=== PATIENT | female | born 1960 | race Caucasian/White ===

== ENCOUNTER → 2016-06-20 | Outpatient (CLI) | payer OTHER ==
[~2016-06-20] MED LIST: ATEN-173 PO; SYN125
[2016-06-20 18:42] LABS: BASO % 0.4 %; BASO ABS # 0.02 K/uL (0-0.2); COMPLETE YES; EOS % 3.6 %; HEMATOCRIT 45.4 % (37-47); IG% 0.2 %; LYMPH % 42.9 %; MEAN CELL VOLUME 93.8 fL (80-100); MEAN CORPUSCULAR HGB CONC 34.1 g/dl (32-36); MEAN PLATELET VOLUME 10.8 fL (7.4-10.4); MONO % 4.5 %; NEUT % 48.4 %; PLATELET COUNT 188 K/uL (130-400); RED BLOOD COUNT 4.84 M/uL (4.2-5.4); WHITE BLOOD COUNT 4.66 K/uL (4.8-10.8)
== END | disposition home or self-care (01) ==
LOC: C.LABSPEC 16:48
PROVIDERS: ATTEND Family Medicine
DX: L29.9 Pruritus, unspecified (principal); R71.8 Other abnormality of red blood cells

== ENCOUNTER → 2016-06-20 | Outpatient (CLI) | payer OTHER | END | disposition home or self-care (01) | LOC: C.PAPS 09:51 | PROVIDERS: ATTEND Family Medicine | DX: Z12.72 Encounter for screening for malignant neoplasm of vagina (principal) ==

== ENCOUNTER → 2016-06-21 | Outpatient (CLI) | payer OTHER ==
[~2016-06-21] VITALS: Ht 167.6 cm; Wt 98.5 kg
[2016-06-21 15:09] VITALS: BP 119/78; PULSE 64; Ht 167.6 cm; Wt 98.5 kg
== END | disposition home or self-care (01) ==
LOC: C.NEUR 13:30
PROVIDERS: ATTEND Physician Assistant Medical
DX: R06.89 Other abnormalities of breathing (principal); R06.83 Snoring

== ENCOUNTER → 2016-08-06 | Outpatient (CLI) | payer OTHER ==
--- NOTE | 2016-08-07 06:25 | PAP/PSG TECHNICIAN REPORT ---
[facility] Digital Marketing Consultant Polysomnogram Report Study name: None Report date: 08/07/2016 Study date: 08/06/2016 Referring Physician: Bianka Multani PA-C Name: JOB GARY Interpreting Physician: Christophe Ruth M.D. Date of : 1960 Digital Marketing Consultant: Krissy Rosas RPSGT. Sex: Female Age: 56 StudyType: PSG Weight: 217.2 lbs Height: 56 years, Height 5' 6" Neck Circum:15inches BMI: 35.05 Medications: Atenolol 25mg, Levothyroxine Sodium 125mcg Patient History Study started on room air with no ETCO2 monitoring in room #60. 56 yr old female here tonight for a diagnostic psg. She states that she has woken up unable to breathe with panic attacks. She does snore. She talks in her sleep. She has two siblings with DANIELA and are both using cpap. Her ESS=6/24. Neck circ=15inches. Parameters Monitored NPSG: E1-M2, E2-M1, Fp1-M2, Fp2-M1, F3-M2, F4-M2, F4-M1, C3-M2, C4-M2, C4-M1, O1-M2, O2-M2, O2-M1, T3-M2, T4-M1, P3-M2, P4-M1, CHIN1, CHIN2, HR, EKG, Legs, PFLOW, SNOR, FLOW, CFLOW, Tidal Volume, THOR, ABDO, SpO2, PLTH, CPRESS, ETCO2 Wave, ETCO2, pH Sleep Architecture Sleep Stages Time at Lights Off 10:00:21 PM STAGES Time (min.) TST (%) Time at Lights On 5:43:21 AM Wake 37.0 -- Total Recording Time (TRT) 463.00 min. N1 30.0 7 Total Sleep Period (TSP) 449.5 min. N2 283.5 67 Total Sleep Time (TST) 426.0min. N3 48.5 11 Awake Time 37.0 min. REM 64.0 15 Wake after Sleep Onset 23.5 min. Sleep Efficiency (SE) 92 % Sleep Onset Latency (CHARISSA) 13.5 min. Number of Stage 1 Shifts None Awakenings 15 Stage Changes 78 Number of REM periods 4 REM 64.0 15 REM Latency 136.5 min. NREM 362.0 85 Body Position Analysis Supine Right Left Side Prone Vertical Total Sleep Time (min.) 62.2 180.3 196.5 376.75 0.0 0.0 Total Sleep Time (%) 12% 42% 46% 88 0% N/A% Total Sleep Time REM (min.) 0.0 19.0 45.0 None 0.0 0.0 Total Sleep Time NREM (min.) 49.2 161.3 151.5 None 0.0 0.0 Intermittent Wake (min.) 13.0 7.3 16.7 None 0.0 0.0 Total Sleep Period (%) 12% None None None None None Arousals Myoclonus (PLM) * Events Count Index Events Count Index Spontaneous 10 1 Events Awake (PLMW) 27 43.8 Respiratory 0 0.0 Events Asleep w/ Arousal (PLMA) 15 2.1 PLM 13 2 Events Asleep w/o Arousal (PLMS) 72 10.1 Snoring 3 0 Total Asleep 87 12.3 Total 26 4 Total 114 15 Respiratory Analysis * CA OA MA CH H RERA Total Count 0 1 0 0 6 0 7 Index 0.0 0.1 0.0 0 0.8 0 1.0 Mean Duration 0.0 13.3 0.0 0.00 33.0 0.0 30.2 Longest Duration 0.0 13.3 0.0 0.00 0.0 0.0 40.6 Respiratory Event Summary Total Supine ~Supine Right Left Prone REM NREM Apneas Count 1 0 1 1 0 N/A 1 0 Index 0.1 0 0 0.3 0.0 N/A 1 0 Hypopneas (4% Desat) Count 6 0 6 6 0 N/A 6 0 Index 0.8 0.0 1 2.0 0.0 N/A 5.6 0.0 Apneas & All Hypopneas Count 7 0 7 7 0 N/A 7 0 Index 1.0 0 1 2 0 N/A 6.6 0.0 Respiratory Events (Conveyor Line Battery Charger+All Hyp+RERA) Count 7 0 7 7 0 N/A 7 0 Index 1.0 0 1 2.3 0.0 N/A 6.6 0.0 Respiratory Related Arousal Count 0 0 0 0 0 N/A 0 0 Index 0.0 0 0 0 0 N/A 0 0 Snoring Analysis Supine Right Left Prone REM NREM Total Snore duration 36.4 min Snores count 293 849 357 N/A 132 1,367 1,499 Snore mean duration 1.5 Sec Snores index 357 283 109 N/A 123.8 226.6 211.1 TST with snoring (%) 8.6% Desaturation Event Summary: Minimum %SpO2 Event Count Mean/Min/Max Duration(sec.) Desaturation Index % Time In Bed > 90 4 38.9 / 18.5 / 60.0 0.5 96.6 86 - 90 0 N/A 0.0 3.4 81 - 85 0 N/A 0.0 0.0 76 - 80 0 N/A 0.0 0.0 71 - 75 0 N/A 0.0 0.0 66 - 70 0 N/A 0.0 0.0 61 - 65 0 N/A 0.0 0.0 56 - 60 0 N/A 0.0 0.0 51 - 55 0 N/A 0.0 0.0 < 50 0 N/A 0.0 0.0 Total REM NREM Awake <50% 0.0 min. 0.0 min. 0.0 min. 0.0 min. 51 - 60% 0.0 min. 0.0 min. 0.0 min. 0.0 min. 61 - 70% 0.0 min. 0.0 min. 0.0 min. 0.0 min. 71 - 80% 0.0 min. 0.0 min. 0.0 min. 0.0 min. 81 - 90% 15.9 min. 3.9 min. 11.4 min. 0.6 min. 91 - 100% 447.1 min. 60.1 min. 350.6 min. 36.4 min. Average 92 92 92 93 Minimum SpO2 87 87 89 90 Desaturation Event Index 0.5 3.8 0.0 0.0 # Desat. Events below 89% 1 1 N/A N/A Time(%) with Saturation below 89% 0.0 0.0 0.0 0.0 Time(min.) with Saturation below 89% 0.2 0.2 0.0 0.0 Time (mins) REM (mins) NREM (mins) % of TST SpO2 Below 90% 2 2 NN/A 0.3 SpO2 Below 88% 0 0 0 0 Heart Rate Analysis Min (bpm) Max (bpm) Average (bpm) Awake 47 82 58 NREM 45 87 52 REM 47 63 54 Overall 45 87 53 Supplemental O2 Values Minimum O2 level: None Value Start Time End Time Digital Marketing Consultant Comments Mrs. Gary slept in the right, left and supine positions. No cardiac arrhythmia noted. Some leg movements were noted. No bruxism noted. Snoring was noted and scored as a 3 on a scale of 1 through 5. (0=no snoring, 5=snoring loud enough to be heard through a closed door or down the oropeza way) She did not use the restroom during the night. She stated that she slept a little worse than usual. The final report will be interpreted and signed by a sleep physician. The completed physician report will then be placed in the patient medical record. Therapy (cm H2O) 0 TIB (min.) 463.0 TST (min.) 426.0 Sleep Onset (min.) 13.5 REM Onset From Sleep (min.) 136.5 Sleep Efficiency % 92 Wakefulness (%) 8 Wakefulness (min.) 37.0 NREM 1 (%) 7 NREM 1 (min.) 30.0 NREM 2 (%) 67 NREM 2 (min.) 283.5 NREM 3 (%) 11 NREM 3 (min.) 48.5 REM (%) 15 REM (min.) 64.0 # Arousals 26 Arousal Index 4 # Snore 1,499 Snore Index 211.1 AHI 1.0 AHI Supine 0 AHI Non-Supine 1 NREM AHI 0.0 REM AHI 6.6 RDI 1.0 # Obstructive Apnea 1 # Central Apnea 0 # Mixed Apnea 0 # Hypopneas 6 RERAs 0 Total Respiratory Events 7 Time Below SpO2 89% (min.) 0.2 Mean NREM SpO2 (%) 92 Mean REM SpO2 (%) 92 Mean Sleep SpO2 (%) 92 Min NREM SpO2 (%) 89 Min REM SpO2 (%) 87 Position Supine (min.) 62.2 Position Non-supine (min.) 376.8 LM Index Sleep 12.3 LM Index NREM 12.9 LM Index REM 8.4 Mean Heart Rate (bpm) 53 Min Heart Rate (bpm) 45
--- NOTE | 2016-08-12 12:46 | Sleep Study ---
Sleep Study Report Date of Service: August 06, 2016 Sleep Study Report Clinical data: The patient is a 56-year-old female with a BMI of 35 referred by for evaluation of possible sleep apnea. She has woken herself at night unable to breathe with panic attacks. She does snore. Her [place] sleepiness score is 6/24. Sleep architecture: Total sleep time was 426 minutes divided between 362 minutes of non-REM sleep and 64 minutes of REM sleep. Sleep onset latency was 13.5 minutes. REM latency was 136.5 minutes. Sleep efficiency was 92%. Wake after sleep onset was 23.5 minutes. Sleep consisted of stage N1 7%, N2 67%, N3 11%, and REM 15%. Arousal data: 26 arousals were recorded for an index of 4 per hour. PLM data 87 limb movements of sleep were noted for an index of 12.3 per hour with arousal index of 2.1 per hour. Respiratory data: There was no evidence of clinically significant sleep apnea. The AHI was 1. There was 1 apneic episode obstructive in nature 13.3 seconds in duration. There were 6 hypopneas episodes. The mean duration of hypopnea was 33 seconds. Oximetry data: No significant hypoxemia was seen. Oxygen elke was 87% during REM. Mean saturation was 92%. Time below 88% was less than 1 minute. EKG: Heart rates ranged from 45 to 87 beats per minute. No arrhythmias were noted. Plywood And Veneer Repairer's comments: Patient slept on the right, left, and supine positions. No bruxism was noted. Snoring was moderate, rated 3 on a scale 1 through 5. Impression: 56-year-old female with snoring, but no evidence of significant sleep apnea/hypopnea, nocturnal hypoxemia, or abnormal limb movements during sleep. Recommendations: The patient should continue to practice good sleep hygiene. There is no evidence for need of CPAP or an oral appliance at this time. She should continue to practice good sleep hygiene. Copies To 1: Maryanne Cary D.O.
== END ==
LOC: C.NEUR 20:00
PROVIDERS: ATTEND Physician Assistant Medical
DX: R06.89 Other abnormalities of breathing (principal); R06.83 Snoring

== ENCOUNTER 2020-09-03 00:15 | Observation (INO) ==
[2020-09-03] MEDS ORDERED: SODIUM CHLORIDE 0.9% 1000ML 1,000 ML IV STA (00:33)
[2020-09-03] MEDS ORDERED: FAMOTIDINE 20MG/5ML IV PUSH IV STA (00:33)
[2020-09-03] MEDS ORDERED: DICYCLOMINE HCL 10 MG/ML 2 ML AMP/VIAL IM ONE (00:33)
--- NOTE | 2020-09-03 00:40 | Emergency Department Note ---
History of Present Illness General Chief complaint: Abdominal Pain Stated complaint: RT SIDE ABD PAIN Time Seen by Provider: 09/03/20 00:24 History of Present Illness Maximum Pain Intensity: 6 This 60-year-old with a gluten allergy presents to the ER complaining of epigastric right upper quadrant pain shortly after eating a bagel Location: Upper abdomen Quality: Discomfort Severity: Moderate Duration: Today Timing: Today Context: Patient was concerned and came in Modifying factors: better with nothing; worse with activity Patient denies chest pain, dyspnea, vomiting, diarrhea, urinary symptoms. She states she feels bloated and gassy. Home Medications Medication Instructions Recorded Confirmed Type calcium carbonate-vitamin D3 600 1 tab PO HS 10/26/17 07/09/20 History mg calcium-200 unit capsule (Calcium 600 + D(3)) coenzyme Q10 200 mg capsule (Co 200 mg PO HS 10/26/17 07/09/20 History Q-10) omega-3 fatty acids-fish oil 360 1 cap PO HS 10/26/17 07/09/20 History mg-1,200 mg capsule (Fish Oil) turmeric root extract 500 mg 500 mg PO HS 10/26/17 07/09/20 History capsule levothyroxine 100 mcg tablet 100 mcg PO DAILY 11/30/19 07/09/20 History (Synthroid) rosuvastatin 20 mg tablet 20 mg PO HS 11/30/19 07/09/20 History Auto Titrating CPAP See Rx Instructions .ROUTE 04/29/20 07/09/20 Rx .COMPLEX #1 ea diclofenac sodium 75 mg 75 mg PO BIDM PRN 04/29/20 07/09/20 History tablet,delayed release diltiazem HCl 30 mg tablet 30 mg PO DAILY tab 04/29/20 07/09/20 History levothyroxine 112 mcg capsule 112 mcg PO UD cap 04/29/20 07/09/20 History CPAP Supplies See Rx Instructions .ROUTE 07/09/20 07/09/20 Rx .COMPLEX #1 ea Allergies Allergy/AdvReac Type Severity Reaction Status Date / Time latex Allergy Intermediate RASH Verified 07/09/20 09:36 gluten Allergy Mild Gastrointestinal Verified 07/09/20 09:36 Upset iodine AdvReac Intermediate hyperthyroi Verified 07/09/20 09:36 d SULFA Allergy Intermediate RASH Uncoded 07/09/20 09:36 Past Med/Surg History Medical History (Updated 09/03/20 @ 04:47 by Kate Wheeler PA-C) Enlarged thyroid H/O HAD RADIOACTIVE IODINE 2006 Gluten intolerance NOT OFFICIALLY DIAGNOSED WITH CELIAC'S DISEASE Hyperlipidemia Hypothyroidism Mitral valve prolapse NO FOOD AND BEVERAGE COORDINATOR--PER PT REASON TAKES ATENOLOL Surgical History H/O cyst of breast R BENIGN History of colonoscopy History of surgery on integumentary structure L FOOT MOLE (BENIGN) REMOVED BETWEEN 4TH/5TH TOE History of tooth extraction WISDOM TEETH S/P correction of deviated nasal septum Family History Father Family history of reaction to anesthesia WAKES UP COMBATIVE Son Family history of reaction to anesthesia WAKES UP COMBATIVE Social History Smoking Status: Former smoker Tobacco Type: Cigarettes Second Hand Exposure: No; Hx Alcohol Use: Yes Alcohol type: wine Hx Substance Use: No Preferred Language: Burundian Communication Ability: Effective Policy Writer Typist Required: No Beliefs That Will Affect Care: Faith Faith Beliefs: MOSQUE Current Living Situation: Spouse and Family Feels Safe at Home: Yes Assistive Devices: Glasses Review of Systems A total of 10 systems reviewed and were otherwise negative Physical Exam Vital Signs Vital Signs - 24 hr 09/03/20 00:17 09/03/20 00:35 09/03/20 02:35 Temperature 36.9 C Temperature Source Temporal Artery Scan Pulse Rate 95 H Pulse Rate [Right Finger] 82 Respiratory Rate 16 18 Respiratory Effort / Characteristics Non-Labored Spontaneous Respiratory Depth Normal Normal Respiratory Pattern Blood Pressure 189/89 H Blood Pressure [Right Arm] 145/82 H Blood Pressure Mean 122 Blood Pressure Mean [Right Arm] 103 Blood Pressure Position Sitting Blood Pressure Position [Right Arm] Pulse Oximetry 95 98 98 Oxygen Delivery Method Room Air Room Air Sepsis Recent Fever Within 48 Hours No Sepsis New/Unexplained Change in Mental Status N/A Sepsis Action Taken by Nursing No Action Required 09/03/20 03:44 09/03/20 05:11 Temperature Temperature Source Pulse Rate Pulse Rate [Right Finger] 80 82 Respiratory Rate 16 16 Respiratory Effort / Characteristics Non-Labored Spontaneous Non-Labored Spontaneous Respiratory Depth Normal Normal Respiratory Pattern Regular Regular Blood Pressure Blood Pressure [Right Arm] 146/75 H 157/76 H Blood Pressure Mean Blood Pressure Mean [Right Arm] 98 103 Blood Pressure Position Blood Pressure Position [Right Arm] Lying Lying Pulse Oximetry 97 98 Oxygen Delivery Method Room Air Room Air Sepsis Recent Fever Within 48 Hours Sepsis New/Unexplained Change in Mental Status Sepsis Action Taken by Nursing VITALS: Vitals are noted on the nurse's note and reviewed by myself. Vital signs stable. GENERAL: Pleasant female, in no acute distress, nondiaphoretic, well-developed well-nourished. SKIN: The skin was without rashes, erythema, edema, or bruising. There is no tenting of the skin. Capillary reflex less than 2 seconds. HEAD: Normocephalic atraumatic. EARS: External auditory canals clear, EYES: Pupils equal round and reactive to light and accommodation. Conjunctivae without injection, sclerae without icterus. Extraocular movements intact. NOSE: Patent, turbinates without inflammation or discharge. MOUTH: Mucous membranes moist. Pharynx without erythema or exudate. Uvula midline. Airway patent. Tongue does not deviate. NECK: Supple without nuchal rigidity. No lymphadenopathy. No thyromegaly. Cervical spine is nontender. No JVD. HEART: Regular rate and rhythm . LUNGS: Clear to auscultation bilaterally without wheezes, rales or rhonchi. No retractions or accessory muscle use. ABDOMEN: Positive bowel sounds x 4. Normal tympanic percussion. Soft, tender to palpation right upper quadrant, without masses or organomegaly. No guarding or rebound tenderness. No CVA tenderness MUSCULOSKELETAL: No muscle atrophy, erythema, or edema noted. NEURO: Patient was alert and oriented to person place and time. Normal sensation to light and sharp touch. No focal neurological deficits. Course Administered Medications Discontinued Medications Dicyclomine HCl (Dicyclomine Hcl 10 Mg/Ml 2 Ml Amp/Vial) 20 mg IM NOW ONE Stop: 09/03/20 00:34 Last Admin: 09/03/20 00:39 Dose: 20 mg Documented by: [id number] Famotidine (Famotidine 20mg/5ml Iv Push) 20 mg IV ONE STA Stop: 09/03/20 00:34 Last Admin: 09/03/20 00:40 Dose: 20 mg Documented by: [id number] Sodium Chloride (Nss 1000ml) 1,000 mls @ 999 mls/hr IV .Q1H1M STA Stop: 09/03/20 01:33 Last Infusion: 09/03/20 01:40 Dose: 0 mls/hr Documented by: [id number] Admin: 09/03/20 00:40 Dose: 999 mls/hr Documented by: [id number] Cefoxitin Sodium (Mefoxin) 2,000 mg in 60 mls @ 100 mls/hr IV NOW STA Stop: 09/03/20 05:22 Last Admin: 09/03/20 05:00 Dose: 100 mls/hr Documented by: [id number] Ioversol (Optiray 320 100ml) 100 ml IV ONCE ONE Stop: 09/03/20 03:37 Last Admin: 09/03/20 03:36 Dose: 93 ml Documented by: [id number] Morphine Sulfate (Morphine Sulfate 4 Mg/Ml 1 Ml Carp\Vial) 4 mg IV NOW STA Stop: 09/03/20 05:05 Last Admin: 09/03/20 05:07 Dose: 4 mg Documented by: [id number] Medical Decision Making Medical Records Attestation: I reviewed the patient's medical records. Home Medications Current Medication List: was personally reviewed by me Laboratory Data Attestation: I reviewed the patient's lab results. Result diagrams: 09/03/20 00:31 09/03/20 00:31 Lab Results 09/03/20 09/03/20 09/03/20 Range/Units 00:31 00:31 00:31 WBC 13.06 H (4.8-10.8) K/uL RBC 5.11 (4.2-5.4) M/uL Hgb 16.6 H (12.0-16.0) g/dL Hct 47.5 H (37-47) % MCV 93.0 (80-100) fL MCH 32.5 (25-34) pg MCHC 34.9 (32-36) g/dL RDW Std Deviation 42.5 (36.4-46.3) fL RDW Coeff of Kin[place] 12.4 (11.5-14.5) % Plt Count 175 (130-400) K/uL MPV 10.5 H (7.4-10.4) fL Immature Gran % (Auto) 0.2 % Neut % (Auto) 83.0 % Lymph % (Auto) 11.3 % [place] % (Auto) 4.6 % Eos % (Auto) 0.7 % Baso % (Auto) 0.2 % Neut # (Auto) 10.86 H (1.4-6.5) K/uL Lymph # (Auto) 1.47 (1.2-3.4) K/uL [place] # (Auto) 0.60 H (0.11-0.59) K/uL Eos # (Auto) 0.09 (0-0.5) K/uL Baso # (Auto) 0.02 (0-0.2) K/uL Immature Gran # (Auto) 0.02 (0.00-0.02) K/uL Sodium 137 (136-145) mmol/L Potassium 3.9 (3.5-5.1) mmol/L Chloride 107 (98-107) mmol/L Carbon Dioxide 25 (21-32) mmol/L Anion Gap 5.0 (3-11) BUN 14 (7-18) mg/dl Creatinine 0.86 (0.6-1.2) mg/dl Est Cr Clr Drug Dosing 83.5 ml/min Est GFR ( Amer) 83.9 ml/min Est GFR (Non-Af Amer) 72.4 ml/min BUN/Creatinine Ratio 16.7 (10-20) Glucose 130 H (70-99) mg/dl Calcium 9.5 (8.5-10.1) mg/dl Total Bilirubin 0.6 (0.2-1) mg/dl AST 29 (15-37) U/L ALT 52 (12-78) U/L Alkaline Phosphatase 85 (45-117) U/L Total Protein 7.8 (6.4-8.2) gm/dl Albumin 4.0 (3.4-5.0) gm/dl Globulin 3.8 (2.5-4.0) gm/dl Albumin/Globulin Ratio 1.1 (0.9-2) Lipase 173 (73-393) U/L HCG, Qual Negative (Negative) Urine Color Urine Appearance (Clear) Urine pH (4.5-7.5) Ur Specific [place] (1.000-1.030) Urine Protein (Negative) Urine Glucose (UA) (Negative) Urine Ketones (Negative) Urine Blood (Negative) Urine Nitrite (Negative) Urine Bilirubin (Negative) Urine Urobilinogen (Negative) Ur Leukocyte Esterase (Negative) COVID-19 Eval Order 09/03/20 09/03/20 Range/Units 01:23 04:55 WBC (4.8-10.8) K/uL RBC (4.2-5.4) M/uL Hgb (12.0-16.0) g/dL Hct (37-47) % MCV (80-100) fL MCH (25-34) pg MCHC (32-36) g/dL RDW Std Deviation (36.4-46.3) fL RDW Coeff of Kin[place] (11.5-14.5) % Plt Count (130-400) K/uL MPV (7.4-10.4) fL Immature Gran % (Auto) % Neut % (Auto) % Lymph % (Auto) % [place] % (Auto) % Eos % (Auto) % Baso % (Auto) % Neut # (Auto) (1.4-6.5) K/uL Lymph # (Auto) (1.2-3.4) K/uL [place] # (Auto) (0.11-0.59) K/uL Eos # (Auto) (0-0.5) K/uL Baso # (Auto) (0-0.2) K/uL Immature Gran # (Auto) (0.00-0.02) K/uL Sodium (136-145) mmol/L Potassium (3.5-5.1) mmol/L Chloride (98-107) mmol/L Carbon Dioxide (21-32) mmol/L Anion Gap (3-11) BUN (7-18) mg/dl Creatinine (0.6-1.2) mg/dl Est Cr Clr Drug Dosing ml/min Est GFR ( Amer) ml/min Est GFR (Non-Af Amer) ml/min BUN/Creatinine Ratio (10-20) Glucose (70-99) mg/dl Calcium (8.5-10.1) mg/dl Total Bilirubin (0.2-1) mg/dl AST (15-37) U/L ALT (12-78) U/L Alkaline Phosphatase (45-117) U/L Total Protein (6.4-8.2) gm/dl Albumin (3.4-5.0) gm/dl Globulin (2.5-4.0) gm/dl Albumin/Globulin Ratio (0.9-2) Lipase (73-393) U/L HCG, Qual (Negative) Urine Color Yellow Urine Appearance Clear (Clear) Urine pH 7.0 (4.5-7.5) Ur Specific [place] 1.005 (1.000-1.030) Urine Protein Negative (Negative) Urine Glucose (UA) Negative (Negative) Urine Ketones Negative (Negative) Urine Blood Negative (Negative) Urine Nitrite Negative (Negative) Urine Bilirubin Negative (Negative) Urine Urobilinogen Negative (Negative) Ur Leukocyte Esterase Negative (Negative) COVID-19 Eval Order Covid19 at [facility] Imaging Data Attestation: I personally reviewed and interpreted this imaging study as gingero ws: JOSUE Narrative Prior records/ancillary studies reviewed. Triage Nursing notes reviewed. Additional history obtained from nursing. The patient's history was concerning for abdominal pain. Differential diagnosis: Etiologies such as appendicitis, diverticulitis, PUD, biliary pathology, UTI, pancreatitis, obstruction, mesenteric ischemia, aortic pathology, infections, inflammatory bowel disease, renal colic, as well as others were entertained. Physical examination findings: As above. ER treatment provided: An order was placed for continuous cardiac monitoring. The monitor shows a rate of 60-1 10 with a sinus rhythm. IV fluids, Pepcid, Bentyl, mefoxin On reassessment the patient felt better. Diagnostics interpreted by me: The labs revealed mild leukocytosis, negative urine Glucose 130 Imaging studies: US RUQ: Fattyinfiltration of liver. Anormal gallbladder is not identified. There is extensive shadowing fromthe gal lbladder fossawhich likelyrepresents gallbladder filled with multiple stones. There is no gallbladde r wall thickening. There is no bile duct dilatation. No abnormal fluid. Normal right kidney. Radiologist: Jameel Booth MD CT ABDOMEN & PELVIS With Contrast: The appendix is abnormallydistended up to 9-10 mmand there is inflammatorychange in the surrounding fat. An appendicolith is seen in the base of the appendix. The findings are consistent with acute appendicitis. There is no abnormal fluid or extraluminal air. No other acute findings. Gallstones. Radiologist: Jameel Booth MD Exam and history seem consistent with appendicitis. Patient was given antibiotics. Surgery was consulted. She will be evaluated. By the evaluation outlined above emergent etiologies such as diverticulitis, UTI, pancreatitis, obstruction, mesenteric ischemia, aortic pathology, inflammatory bowel disease, renal colic, as well as others were deemed relatively unlikely. The pt informed about the findings as listed above. All questions were answered and pleased with the treatment. The chart was completed utilizing Le[employer] Speech voice recognition software. Grammatical errors, random word insertions, pronoun errors, and incomplete sentences are an occassional consequence of this system due to software limitations, ambient noise, and hardware issues. Any formal questions or concerns about the content, text, or information contained within the body of this dictation should be directly addressed to the physician accounting assistant for clarification. Impression & Plan Acute appendicitis Discharge Plan Visit Data Chief Complaint: Abdominal Pain Stated Complaint: RT SIDE ABD PAIN ED Provider: Rukhsana Baig ED Midlevel Provider: Kate Wheeler Discharge Problem: Acute appendicitis Patient Disposition: Being Evaluated by Surgeon Condition: Good Forms Stand Alone Forms: [facility], [facility] Emergency Department, Important Visit Information Prescriptions Prescriptions: No Action levothyroxine 112 mcg capsule 112 mcg PO UD RF: 0 Auto Titrating CPAP Misc See Rx Instructions .ROUTE .COMPLEX Qty: 1 RF: 0 CPAP Supplies Misc See Rx Instructions .ROUTE .COMPLEX Qty: 1 RF: 0 coenzyme Q10 [Co Q-10] 200 mg Capsule 200 mg PO HS RF: 0 Calcium 600 + D(3) 600 mg calcium- 200 unit Capsule 1 tab PO HS RF: 0 omega-3 fatty acids-fish oil [Fish Oil] 360-1,200 mg Capsule 1 cap PO HS RF: 0 turmeric root extract 500 mg Capsule 500 mg PO HS RF: 0 levothyroxine [Synthroid] 100 mcg tablet 100 mcg PO DAILY RF: 0 rosuvastatin 20 mg tablet 20 mg PO HS RF: 0 diltiazem HCl 30 mg tablet 30 mg PO DAILY RF: 0 diclofenac sodium 75 mg tablet,delayed release (DR/EC) 75 mg PO BIDM PRN (Reason: pain) RF: 0 Referrals Referrals: Oracio Gipson [Primary Care Provider] - Discharge Problem: Acute appendicitis Qualifiers: Acute appendicitis type: unspecified acute appendicitis type Qualified Code(s): K35.80 - Unspecified acute appendicitis
[2020-09-03 00:43] LABS: Basophils # (auto) 0.02 K/uL (0-0.2); Basophils % (auto) 0.2 %; Eosinophils # (auto) 0.09 K/uL (0-0.5); Eosinophils % (auto) 0.7 %; Hematocrit (blood only) 47.5 % (37-47); Hemoglobin 16.6 g/dL (12.0-16.0); Immature Granulocytes # (auto) 0.02 K/uL (0.00-0.02); Immature Granulocytes % (auto) 0.2 %; Lymphocytes # (auto) 1.47 K/uL (1.2-3.4); Lymphocytes % (auto) 11.3 %; Mean Corpuscular Hemoglobin 32.5 pg (25-34); Mean Corpuscular Hgb Conc 34.9 g/dL (32-36); Mean Platelet Volume 10.5 fL (7.4-10.4); Monocytes % (auto) 4.6 %; Neutrophils # (auto) 10.86 K/uL (1.4-6.5); Platelet Count 175 K/uL (130-400); RDW Coefficient of Variation 12.4 % (11.5-14.5); RDW Standard Deviation 42.5 fL (36.4-46.3); Red Blood Count 5.11 M/uL (4.2-5.4); White Blood Count 13.06 K/uL (4.8-10.8)
[2020-09-03 01:00] LABS: BUN Creatinine Ratio 16.7 (10-20); Calcium 9.5 mg/dl (8.5-10.1); Creatinine Clr Calc Pharmacy 83.5 ml/min; Est GFR (African American) 83.9 ml/min; Est GFR (Non-African American) 72.4 ml/min; Potassium 3.9 mmol/L (3.5-5.1)
[2020-09-03 01:03] LABS: Albumin Globulin Ratio 1.1 (0.9-2); Bilirubin,Total 0.6 mg/dl (0.2-1); Globulin 3.8 gm/dl (2.5-4.0); Total Protein 7.8 gm/dl (6.4-8.2)
[2020-09-03 01:30] LABS: Appearance Urine Clear (Clear); Bilirubin Urine Negative (Negative); Blood Urine Negative (Negative); Color Urine Yellow; Glucose Urine UA Negative (Negative); Ketones Urine Negative (Negative); Leukocyte Esterase Urine Negative (Negative); Nitrite Urine Negative (Negative); Protein Urine Negative (Negative); Specific Gravity Urine 1.005 (1.000-1.030); Urobilinogen Urine Negative (Negative)
[2020-09-03 01:30] LABS: Pregnancy Test, Serum Negative (Negative)
[2020-09-03] MEDS ORDERED: OPTIRAY 320 100ml IV ONE (03:36)
[2020-09-03] MEDS ORDERED: cefOXitin 2,000 MG/60 ML BAG IV STA (04:47)
[2020-09-03] MEDS ORDERED: MoRPHine SULFATE 4 MG/ML 1 ML CARP\\VIAL IV STA ×2 (05:04→06:21)
--- NOTE | 2020-09-03 05:42 | History & Physical Report ---
Date of Service September 03, 2020 Assessment & Plan (1) Acute appendicitis: Plan: IV mefoxin IVF will need COVID test to OR with Dr Corbett to remove appendix Acute appendicitis type: unspecified acute appendicitis type Qualified Code(s): K35.80 - Unspecified acute appendicitis History of Present Illness Chief Complaint: Abdominal pain Primary Care Provider: Oracio Gipson This is a 60-year-old with a gluten allergy presents to the ED last night complaining of right sided abdominal pain shortly after eating a bagel. She has some nausea and bloating but no vomiting. No fever or chills. No urinary symptoms. She had some crackers and water early this morning. A CT scan was done which shows acute early appendicitis with dilation and inflammation. Allergies Allergy/AdvReac Type Severity Reaction Status Date / Time latex Allergy Intermediate RASH Verified 07/09/20 09:36 gluten Allergy Mild Gastrointestinal Verified 07/09/20 09:36 Upset iodine AdvReac Intermediate hyperthyroi Verified 07/09/20 09:36 d SULFA Allergy Intermediate RASH Uncoded 07/09/20 09:36 Home Medications Medication Instructions Recorded Confirmed Type calcium carbonate-vitamin D3 600 1 tab PO HS 10/26/17 07/09/20 History mg calcium-200 unit capsule (Calcium 600 + D(3)) coenzyme Q10 200 mg capsule (Co 200 mg PO HS 10/26/17 07/09/20 History Q-10) omega-3 fatty acids-fish oil 360 1 cap PO HS 10/26/17 07/09/20 History mg-1,200 mg capsule (Fish Oil) turmeric root extract 500 mg 500 mg PO HS 10/26/17 07/09/20 History capsule levothyroxine 100 mcg tablet 100 mcg PO DAILY 11/30/19 07/09/20 History (Synthroid) rosuvastatin 20 mg tablet 20 mg PO HS 11/30/19 07/09/20 History Auto Titrating CPAP See Rx Instructions .ROUTE 04/29/20 07/09/20 Rx .COMPLEX #1 ea diclofenac sodium 75 mg 75 mg PO BIDM PRN 04/29/20 07/09/20 History tablet,delayed release diltiazem HCl 30 mg tablet 30 mg PO DAILY tab 04/29/20 07/09/20 History levothyroxine 112 mcg capsule 112 mcg PO UD cap 04/29/20 07/09/20 History CPAP Supplies See Rx Instructions .ROUTE 07/09/20 07/09/20 Rx .COMPLEX #1 ea Past Med/Surg History Medical History (Updated 09/03/20 @ 04:47 by Kate Wheeler PA-C) Enlarged thyroid H/O HAD RADIOACTIVE IODINE 2006 Gluten intolerance NOT OFFICIALLY DIAGNOSED WITH CELIAC'S DISEASE Hyperlipidemia Hypothyroidism Mitral valve prolapse 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 Surgical History H/O cyst of breast R BENIGN History of colonoscopy History of surgery on integumentary structure L FOOT MOLE (BENIGN) REMOVED BETWEEN 4TH/5TH TOE History of tooth extraction WISDOM TEETH S/P correction of deviated nasal septum Family History Father Family history of reaction to anesthesia WAKES UP COMBATIVE Son Family history of reaction to anesthesia WAKES UP COMBATIVE Social History Smoking Status: Former smoker Tobacco Type: Cigarettes Second Hand Exposure: No; Hx Alcohol Use: Yes Alcohol type: wine Hx Substance Use: No Preferred Language: Setswana Communication Ability: Effective Commercial Property Manager Required: No Beliefs That Will Affect Care: Lutheran Lutheran Beliefs: HINDUISM Current Living Situation: Spouse and Family Feels Safe at Home: Yes Assistive Devices: Glasses Review of Systems No fever or chills No issues No SOB Additional Comments: No chest pain See HPI No dysauria No joint or muscle pain No rashes or jaundice MAEW No depression Physical Exam Constitutional: Alert and pleasant Eyes: PERRLA, EOMI Neck: supple, no tenderness or masses Respiratory: B CTA Cardiovascular: RRR without M/R/G Gastrointestinal (Abdomen): Soft, no scars, good BS, no hernias, tenderness with guarding in RLQ Skin: No rashes or lesions Results & Data ([facility]) Vital Signs (Past 12 Hours) Vital Signs Temp Pulse Pulse Resp BP BP Pulse Ox 09/03/20 05:11 82 16 157/76 H 98 09/03/20 03:44 80 16 146/75 H 97 09/03/20 02:35 82 18 145/82 H 98 09/03/20 00:35 98 09/03/20 00:17 36.9 C 95 H 16 189/89 H 95 Laboratory Results WBC [address] scan with acute appendicitis
[2020-09-03] MEDS ORDERED: fentaNYL citrate 100 MCG/2 ML VIAL ONE ×2 (06:59→08:15)
[2020-09-03] MEDS ORDERED: MIDAZOLAM HCL 1 MG/ML 2ML VIAL ONE (06:59)
[2020-09-03] MEDS ORDERED: BUPIVACAINE 0.5 % 5 MG/1 ML MPF 30ML VIAL ONE (07:13)
[2020-09-03] MEDS ORDERED: LIDOCAINE 1% LOCAL 20 ML VIAL ONE (07:13)
--- NOTE | 2020-09-03 07:22 | Ultrasound Report ---
US gallbladder CLINICAL HISTORY: Abdominal pain. COMPARISON STUDY: No previous studies for comparison. FINDINGS: This exam is compromised by suboptimal penetration. Shadowing within the gallbladder fossa represents a gallbladder filled with gallstones. Sonographic Galloway sign could not be assessed for in this patient. There is no gallbladder wall thickening. Pancreas is obscured by overlying bowel gas. There is no right hydronephrosis. There is no biliary ductal dilatation. Hepatic echogenicity is incr eased. IMPRESSION: 1. Cholelithiasis. No sonographic evidence for acute cholecystitis. 2. No biliary ductal dilatation. 3. Hepatic steatosis. 4. Exam compromised by suboptimal penetration. Obscured pancreas. ACT 112: Negative or not required by law. Electronically signed by: Justo Arellano M.D. 09/03/2020 7:20 AM
[2020-09-03] MEDS ORDERED: BACITRACIN OINT 15 GM TUBE ONE (07:23)
--- NOTE | 2020-09-03 07:29 | History & Physical Bridge Note ---
Date of Service September 03, 2020 History & Physical Bridge Note I have examined the patient, reviewed the History & Physical and in the interval since the performance of the History & Physical I have noted the following changes of clinical significance: no changes noted, I reviewed pts' H/P, labs, CT scan with pt, I recommend to do laparoscopic appendectomy, possible open, D/W benefits, risks and alternatives of the surgery, the risks - infection, bleeding, injury other organs, abscess, pt understood, she signed informed consent, I answered all questions,
--- NOTE | 2020-09-03 07:31 | Anesthesiology Consultation ---
Date of Service September 03, 2020 Assessment & Plan (1) Encounter for pre-operative examination: Chart Review Chart Review: Acceptable Risk for Surgery (necessary surgery), Patient NOT seen in Pre Admission Testing and Acceptable Risk for Labor Epidural Consults Requested none ASA [id number] Proposed Anesthesia Anesthesia Type: General Risk / Benefits Reviewed With: PT / POA / Parent / Guardian, Accepts Plan and Informed Consent Obtained History Surgery Operation Date: 09/03/20 07:00 Proposed Procedures p Laparoscopic Appendectomy - Janice Corbett MD Height/Weight Height: 5 ft 6 in Weight: 106.1 kg Allergies Allergy/AdvReac Type Severity Reaction Status Date / Time latex Allergy Intermediate RASH Verified 09/03/20 07:18 gluten Allergy Mild Gastrointestinal Verified 09/03/20 07:18 Upset iodine AdvReac Intermediate hyperthyroi Verified 09/03/20 07:18 d SULFA Allergy Intermediate RASH Uncoded 09/03/20 07:18 Medications Home Medications Medication Instructions Recorded Confirmed Last Taken calcium carbonate-vitamin D3 600 1 tab PO HS 10/26/17 09/03/20 01/30/18 09:00 mg calcium-200 unit capsule (Calcium 600 + D(3)) coenzyme Q10 200 mg capsule (Co 200 mg PO HS 10/26/17 09/03/20 01/30/18 09:00 Q-10) omega-3 fatty acids-fish oil 360 1 cap PO HS 10/26/17 09/03/20 01/30/18 09:00 mg-1,200 mg capsule (Fish Oil) levothyroxine 100 mcg tablet 100 mcg PO DAILY 11/30/19 09/03/20 Unknown (Synthroid) rosuvastatin 20 mg tablet 20 mg PO HS 11/30/19 09/03/20 Unknown Auto Titrating CPAP See Rx Instructions .ROUTE 04/29/20 09/03/20 Unknown .COMPLEX #1 ea diclofenac sodium 75 mg 75 mg PO BIDM PRN 04/29/20 09/03/20 Unknown tablet,delayed release diltiazem HCl 30 mg tablet 30 mg PO DAILY tab 04/29/20 09/03/20 09/02/20 levothyroxine 112 mcg capsule 112 mcg PO UD cap 04/29/20 09/03/20 09/02/20 CPAP Supplies See Rx Instructions .ROUTE 07/09/20 09/03/20 Unknown .COMPLEX #1 ea NPO Date Last Intake of Fluids: 09/03/20 Time Last Intake of Fluids: 04:00 Last Intake of Fluids Comment: oral contrast Date Last Intake of Solids: 09/03/20 Time Last Intake of Solids: 02:30 Last Intake of Solids Comment: crackers Past Medical History Medical History (Updated 09/03/20 @ 07:46 by Magdiel Mayers MD) Enlarged thyroid H/O HAD RADIOACTIVE IODINE 2006 Gluten intolerance NOT OFFICIALLY DIAGNOSED WITH CELIAC'S DISEASE Hyperlipidemia Hypothyroidism Mitral valve prolapse 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 Obesity Exercise / Class Metabolic Activity II 4-5 Yardwork/Stairs/Walk up hill Past Family History Family History Father Family history of reaction to anesthesia WAKES UP COMBATIVE Son Family history of reaction to anesthesia WAKES UP COMBATIVE Past Surgical History Surgical History H/O cyst of breast R BENIGN History of colonoscopy History of surgery on integumentary structure L FOOT MOLE (BENIGN) REMOVED BETWEEN 4TH/5TH TOE History of tooth extraction WISDOM TEETH S/P correction of deviated nasal septum Past Anesthesia History No Hx of Anesthesia Complications and No Family Hx of Anesthesia Complications History of PONV No Hx of PONV and No Hx of Motion Sickness Social History Smoking Status: Former smoker tobacco type: cigarettes Hx Alcohol Use: Yes Alcohol type: wine alcohol intake frequency: holidays/special occasions only Hx Substance Use: No substance use type: does not use Review of Systems no chest pain or sob, no cough or fever Physical Exam Vital Signs Last Vital Signs Temp 37.1 C 09/03/20 07:10 Pulse 64 09/03/20 07:10 Resp 18 09/03/20 07:10 BP 134/78 09/03/20 07:10 Pulse Ox 95 09/03/20 07:10 Constitutional + obese ENMT Mouth: + dental caries; no TMJ abnormality Thyromental Distance: > or= 3.5 Finger Breadths Mallampati Class: II Neck normal visual inspection and + thick neck Respiratory normal respiratory effort and + respiratory distress Auscultation: lungs clear to auscultation bilaterally Cardiovascular Rate/Rhythm: regular rate and regular rhythm Musculoskeletal Spine: normal cervical ROM Neurologic moves all extremities Psychiatric Orientation: alert and oriented x 3 Testing Laboratory Results 09/03/20 00:31 09/03/20 00:31 Urine Color Yellow 09/03/20 01:23 Urine Appearance Clear (Clear) 09/03/20 01:23 Urine pH 7.0 (4.5-7.5) 09/03/20 01:23 Ur Specific Export 1.005 (1.000-1.030) 09/03/20 01:23 Urine Protein Negative (Negative) 09/03/20 01:23 Urine Glucose (UA) Negative (Negative) 09/03/20 01:23 Urine Ketones Negative (Negative) 09/03/20 01:23 Urine Nitrite Negative (Negative) 09/03/20 01:23 Ur Leukocyte Esterase Negative (Negative) 09/03/20 01:23 Electrocardiogram Date: 09/03/20 Findings: + NSR @ (77) Other Testing CT abd pelvis IV con only CLINICAL HISTORY: Right lower quadrant abdominal pain COMPARISON STUDY: None. TECHNIQUE: The patient was scanned in a dynamic helical fashion during intravenous administration of 93 cc of Optiray 320 A dose lowering technique was utilized adhering to the principles of ALARA. CT DOSE: 1131.56 mGy.cm FINDINGS: Lower chest: There are no pleural effusions. There is no basilar consolidation. Liver: There is mild hepatic steatosis. Liver measures 19.2 cm. No focal hepatic masses are visualized. There is no ductal dilatation. Gallbladder: Cholelithiasis. No pericholecystic infiltration. Spleen: Normal in size and attenuation. Pancreas: Unremarkable. Adrenal glands: Unremarkable. Kidneys: There are bilateral hypodense renal lesions statistically representing cysts. Bowel: There are no transition zones to indicate bowel obstruction. There is no evidence of acute diverticulitis. There is a dilated appendix containing appendicolith. There is periappendiceal inflammatory stranding. The findings are indicative of acute appendicitis. Peritoneum: There is no intraperitoneal free air or abdominal ascites. Vasculature: The abdominal aorta is normal in course and caliber. Adenopathy: None. Pelvic viscera: The bladder, and pelvic viscera are unremarkable. Skeletal structures: No destructive osseous lesions are seen. IMPRESSION: 1. CT findings indicative of acute appendicitis 2. No evidence of bowel obstruction. No evidence of free air 2. Cholelithiasis 4. Mild hepatomegaly ACT 112: Negative or not required by law. Electronically signed by: Jairo Reynolds M.D. 09/03/2020 7:35 AM Dictated: 09/03/2032Transcribed: 09/03/2032
[2020-09-03] MEDS ORDERED: HYDROmorphone INJ 1 MG/ML SYRINGE IV PRN ×2 (07:33→10:42)
[2020-09-03] MEDS ORDERED: LABETALOL HCL IV 5 MG/ML 20ML IV PRN (07:33)
[2020-09-03] MEDS ORDERED: fentaNYL citrate 100 MCG/2 ML VIAL IV PRN (07:33)
[2020-09-03] MEDS ORDERED: ATROPINE SULFATE 0.1 MG/ML 10ML SYR IV PRN (07:33)
[2020-09-03] MEDS ORDERED: ePHEDrine sulfate 50 MG/ML AMP IV PRN (07:33)
[2020-09-03] MEDS ORDERED: PHENYLEPHRINE 100MCG/ML 5ML SYR IV PRN (07:33)
[2020-09-03] MEDS ORDERED: MEPERIDINE HCL 25 MG/ML CARP/VIAL IV PRN (07:33)
[2020-09-03] MEDS ORDERED: ONDANSETRON INJ 2 MG/ML 2 ML VIAL IV PRN ×2 (07:33→09:11)
--- NOTE | 2020-09-03 07:37 | CT Scan Report ---
CT abd pelvis IV con only CLINICAL HISTORY: Right lower quadrant abdominal pain COMPARISON STUDY: None. TECHNIQUE: The patient was scanned in a dynamic helical fashion during intravenous administration of 93 cc of Optiray 320 A dose lowering technique was utilized adhering to the principles of ALARA. CT DOSE: 1131.56 mGy.cm FINDINGS: Lower chest: There are no pleural effusions. There is no basilar consolidation. Liver: There is mild hepatic steatosis. Liver measures 19.2 cm. No focal hepatic masses are visualize d. There is no ductal dilatation. Gallbladder: Cholelithiasis. No pericholecystic infiltration. Spleen: Normal in size and attenuation. Pancreas: Unremarkable. Adrenal glands: Unremarkable. Kidneys: There are bilateral hypodense renal lesions statistically representing cysts. Bowel: There are no transition zones to indicate bowel obstruction. There is no evidence of acute div erticulitis. There is a dilated appendix containing appendicolith. There is periappendiceal inflammat ory stranding. The findings are indicative of acute appendicitis. Peritoneum: There is no intraperitoneal free air or abdominal ascites. Vasculature: The abdominal aorta is normal in course and caliber. Adenopathy: None. Pelvic viscera: The bladder, and pelvic viscera are unremarkable. Skeletal structures: No destructive osseous lesions are seen. IMPRESSION: 1. CT findings indicative of acute appendicitis 2. No evidence of bowel obstruction. No evidence of free air 2. Cholelithiasis 4. Mild hepatomegaly ACT 112: Negative or not required by law. Electronically signed by: Jairo Reynolds M.D. 09/03/2020 7:35 AM
[2020-09-03] MEDS ORDERED: LACTATED RINGER'S 1,000 ML IV SCH (07:45)
--- NOTE | 2020-09-03 08:30 | Electrocardiogram Report ---
Test Reason : Blood Pressure : / mmHG Vent. Rate : 077 BPM Atrial Rate : 077 BPM P-R Int : 160 ms QRS Dur : 084 ms QT Int : 388 ms P-R-T Axes : 052 006 002 degrees QTc Int : 439 ms Normal sinus rhythm Normal ECG When compared with ECG of 12-MAR-2018 09:05, Vent. rate has increased BY 26 BPM Confirmed by Evan Orta ([id number]) on 09/03/2020 8:29:36 AM Referred By: REFERRED SELF Confirmed By:Evan Orta
[2020-09-03] MEDS ORDERED: DEXAMETHASONE SOD INJ 4 MG/ML VIAL ONE (08:45)
[2020-09-03] MEDS ORDERED: PROPOFOL IV EMULSION 10 MG/ML 20 ML VIAL IV ONE (08:45)
[2020-09-03] MEDS ORDERED: ROCURONIUM BROMIDE 10 MG/ML 5 ML VIAL IV ONE (08:45)
[2020-09-03] MEDS ORDERED: LIDOCAINE 2% 2 ML VIAL/AMP(20MG/ML) INFIL ONE (08:45)
[2020-09-03] MEDS ORDERED: ONDANSETRON INJ 2 MG/ML 2 ML VIAL ONE (08:45)
[2020-09-03] MEDS ORDERED: SUCCINYLCHOLINE CHLORIDE 20 MG/ML 10 ML VIAL IV ONE (08:45)
[2020-09-03] MEDS ORDERED: NEOSTIGMINE METHYLSULFATE 1 MG/ML 10ML VIAL ONE (08:46)
[2020-09-03] MEDS ORDERED: GLYCOPYRROLATE 0.2 MG/ML VIAL ONE (08:46)
--- NOTE | 2020-09-03 08:48 | Post Operative Brief Note ---
Immediate Post Op Note v1 Date of Surgery September 03, 2020 Pre & Post Diagnosis Operation Date: 09/03/20 07:00 Pre-Op Diagnosis: acute appendicitis Post-Op Diagnosis: acute appendicitis I identified the patient and participated in the time-out.: Yes Procedure Operation Date: 09/03/20 07:00 Actual Procedures p Laparoscopic Appendectomy(Not Applicable) - Janice Corbett MD Surgeon Janice Corbett MD Architect Marine geodetic surveyor technologist Estimated Blood Loss 10 Findings Consistent with Post-Op Diagnosis acute appendicitis Fluids 700ml Specimens appendix Complications none Disposition Accompanied Patient To Recovery: Yes
--- NOTE | 2020-09-03 09:09 | Anesthesiology Progress Note ---
Date of Service September 03, 2020 Anesthesia Post Procedure Vital Signs Vital Signs: Temp Pulse Pulse Pulse Resp BP BP 09/03/20 07:10 37.1 C 64 18 134/78 09/03/20 06:20 80 18 137/74 09/03/20 05:11 82 16 157/76 H 09/03/20 03:44 80 16 146/75 H 09/03/20 02:35 82 18 145/82 H 09/03/20 00:35 09/03/20 00:17 36.9 C 95 H 16 189/89 H Pulse Ox 09/03/20 07:10 95 09/03/20 06:20 97 09/03/20 05:11 98 09/03/20 03:44 97 09/03/20 02:35 98 09/03/20 00:35 98 09/03/20 00:17 95 Pain Intensity Abdomen: Pain Intensity: 3 Transfer of Care Handoff Completed per policy Notes Mental Status: alert / awake / arousable Patient Amnestic to Procedure: Yes Nausea / Vomiting: adequately controlled Pain: adequately controlled Airway Patency, RR, SpO2: stable & adequate BP & HR: stable & adequate Hydration State: stable & adequate Anesthetic Complications: no major complications apparent and Pt Satisfied with anesthetic care Notes: The patient is awake and comfortable in PACU. HR 84, BP 159/82, RR 15, SpO2 96 on oxygen, T 37.3.
[2020-09-03] MEDS ORDERED: oxyCODONE/ACETAMINOPHEN 5mg/325mg TAB PO PRN (10:42)
[2020-09-03] MEDS ORDERED: NON-FORMULARY MEDICATION (Auto Titrating Cpap misc) SCH (10:42)
[2020-09-03] MEDS ORDERED: NON-FORMULARY MEDICATION (Cpap Supplies misc) SCH (10:42)
[2020-09-03] MEDS ORDERED: PIPERACILL/TAZOBAC CONSULT ACTIVE PRN (10:42)
[2020-09-03] MEDS ORDERED: DICLOFENAC SODIUM 75 MG TABCR PO PRN (10:42)
[2020-09-03] MEDS ORDERED: PIPERACILLIN/TAZOBACTAM 4.5 GM in DEXTROSE 5% 100 ML IV ONE (11:00)
--- NOTE | 2020-09-03 11:03 | Operative Report (OR) ---
PREOPERATIVE DIAGNOSIS: Acute appendicitis. POSTOPERATIVE DIAGNOSIS: Acute appendicitis. PROCEDURE: Laparoscopic appendectomy. SURGEON: Janice Corbett MD. ANESTHESIA: General. ESTIMATED BLOOD LOSS: About 10 mL. FINDINGS: Acute appendicitis with some pus around the appendix. COMPLICATIONS: None. INDICATIONS: This is 60-year-old female who presented to the ED with acute abdominal pain. The loretta ent had a CT scan diagnosis of acute appendicitis. I recommend to take the patient to the OR, do the laparoscopic appendectomy, possible open. I did review the patient's history, physical exam, labs, a CT scan with the patient. So we had discussion with the patient about benefit, the risks and alter ladan to procedure. I indicated the risks may include, but not limited to, such as bleeding, infectio n, abscess, injury to other organs, incisional hernia. The patient understands. She signed informed consent and I answered all questions. DETAILS OF PROCEDURE: After we identified the patient and verified the procedure, we brought the pat ient to the OR, put the patient on the supine position. The patient received SCD on bilateral legs t o prevent DVT. Also, patient received 2 grams cefoxitin IV for prophylactic antibiotic. The patient received general anesthesia without difficulty. Abdomen was appropriately draped in routine sterile fashion. After timeout, I injected the local anesthesia by using 1% lidocaine mixed with 0.5% Marcai ne just above umbilicus and then I made a small incision just above umbilicus, opened fascia, opened peritoneum and under direct vision, put a Michael trocar in, connected to CO2 to create pneumoperitone um, flow rate at 6 liters per minute, pressure not more than 14 mmHg. Once we get a nice pneumoperit oneum, we put a camera in, looked around the abdomen, showed there was some inflammation around the r ight lower quadrant area, minimal to pelvic floor. At this moment, we put another two 5 mm trocars o n the left lower quadrant area. Once all trocars in, we suctioned some free flow at the pelvic area and right lower quadrant area and then we mobilized the cecum and found the patient had acute appendi citis. The appendix is enlarged with significant inflammation with some pus around the appendix outs tee, but no significant perforation. At this moment, we used the Harmonic to take down the appendice al, rechecked, no active bleeding. Then, I used a 45 mm Endo-LISANDRA stapler for transection on the base of the appendix, rechecked the staple line intact and no leak, no active bleeding. Then, we removed the appendix through the catch bag. Then, we reinserted Michael trocar in, connected to CO2 to creat e pneumoperitoneum, again looked around the abdomen. No leak, no active bleeding on the staple line. Then, we removed all trocars under direct vision. No active bleeding from the trocar site. Pneumo peritoneum was released, then I closed umbilicus incision fascial layer by using 0 Vicryl figure-of-e ight x2, closed subcutaneous layer by using 2-0 Vicryl interrupted, closed skin by using 4-0 Vicryl c ontinuous running, closed another two 5 mm trocars site of skin only by using 4-0 Vicryl. Then, we p ut the dressing on. The patient tolerated the procedure well. All instrument, needle and sponge cou nts were correct x2 at the end of the case. Patient transferred to recovery room in stable condition . The specimen was sent to pathology. After the procedure, I did talk to the patient and the patien t's about the OR finding and the procedure we did, they understand. Job ID: [id number]
[2020-09-03] MEDS: LACTATED RINGER'S 1,000 ML IV SCH (12:55)
[2020-09-03] MEDS: PIPERACILLIN/TAZOBACTAM 4.5 GM in DEXTROSE 5% 100 ML IV SCH (16:57)
[2020-09-03] MEDS ORDERED: NON-FORMULARY MEDICATION (Coenzyme Q10 [Co Q-10] 200 mg Capsule) PO SCH (21:00)
[2020-09-03] MEDS ORDERED: ROSUVASTATIN CALCIUM 20 MG TAB PO SCH (21:00)
[2020-09-03] MEDS ORDERED: OMEGA-3 (PURIFIED FISH OIL) 1 GM CAP PO SCH (21:00)
[2020-09-03] MEDS ORDERED: CALCIUM 600MG + VIT D 400 IU TAB PO SCH (21:00)
[2020-09-03 23:18] VITALS: O2SAT 95
[2020-09-04] MEDS: PIPERACILLIN/TAZOBACTAM 4.5 GM in DEXTROSE 5% 100 ML IV SCH ×2 (00:18→08:26)
[2020-09-04] MEDS: LACTATED RINGER'S 1,000 ML IV SCH (01:09)
[2020-09-04 03:42] VITALS: TEMP 97.5
[2020-09-04] MEDS ORDERED: LEVOTHYROXINE SODIUM 112 MCG TABLET PO SCH (06:30)
[2020-09-04 07:34] VITALS: BP 120/76; PULSE 55
[2020-09-04 07:50] LABS: Eosinophils # (auto) 0.01 K/uL (0-0.5); Eosinophils % (auto) 0.1 %; Hematocrit (blood only) 41.6 % (37-47); Hemoglobin 14.3 g/dL (12.0-16.0); Immature Granulocytes # (auto) 0.02 K/uL (0.00-0.02); Immature Granulocytes % (auto) 0.2 %; Lymphocytes # (auto) 1.25 K/uL (1.2-3.4); Lymphocytes % (auto) 11.3 %; Mean Corpuscular Hemoglobin 32.4 pg (25-34); Mean Corpuscular Hgb Conc 34.4 g/dL (32-36); Mean Corpuscular Volume 94.3 fL (80-100); Mean Platelet Volume 10.7 fL (7.4-10.4); Monocytes # (auto) 0.46 K/uL (0.11-0.59); Monocytes % (auto) 4.1 %; Neutrophils # (auto) 9.35 K/uL (1.4-6.5); Neutrophils % (auto) 84.3 %; Platelet Count 151 K/uL (130-400); RDW Coefficient of Variation 12.6 % (11.5-14.5); RDW Standard Deviation 43.7 fL (36.4-46.3); Red Blood Count 4.41 M/uL (4.2-5.4); White Blood Count 11.09 K/uL (4.8-10.8)
[2020-09-04 08:18] LABS: Albumin Level 3.1 gm/dl (3.4-5.0); BUN Creatinine Ratio 13.1 (10-20); Calcium 9.1 mg/dl (8.5-10.1); Creatinine Clr Calc Pharmacy 84.5 ml/min; Est GFR (African American) 85.1 ml/min; Est GFR (Non-African American) 73.4 ml/min; Potassium 3.8 mmol/L (3.5-5.1)
[2020-09-04 08:20] LABS: Albumin Globulin Ratio 0.9 (0.9-2); Bilirubin,Total 0.7 mg/dl (0.2-1); Globulin 3.6 gm/dl (2.5-4.0); Total Protein 6.7 gm/dl (6.4-8.2)
[2020-09-04] MEDS ORDERED: dilTIAZem HCL 30 MG TAB PO SCH (09:00)
--- NOTE | 2020-09-04 11:55 | Progress Note ---
Date of Service September 04, 2020 Assessment & Plan (1) Acute appendicitis: Plan: IV mefoxin IVF will need COVID test to OR with Dr Corbett to remove appendix Acute appendicitis type: unspecified acute appendicitis type Qualified Code(s): K35.80 - Unspecified acute appendicitis Plan: 09/04/2020 11:57AM S/P lap appy, POD 1 doing fine, d/c home today, post-op care instruction was given, F/U 2 weeks, Admission and Anticipated Discharge Date Admission Date: September 03, 2020 Subjective F/U S/P lap appy, POD 1 doing fine, no significant abdominal pain, no nausea, no vomiting, tolerated diet, no fever, Review of Systems Constitutional: No fever or chills Eyes: No issues Respiratory: No SOB Cardiovascular: Additional Comments: No chest pain Gastrointestinal: See HPI Genitourinary: No dysauria Musculoskeletal: No joint or muscle pain Integumentary: No rashes or jaundice Neurologic: MAEW Psychiatric: No depression Physical Exam Constitutional: WD/WN, vitals as above Eyes: PERRL, conjunctivae normal, anicteric sclerae Neck: trachea midline, no thyromegaly Respiratory: normal respiratory effort, lungs clear to auscultation Cardiovascular: RRR, no murmur, no edema Gastrointestinal (Abdomen): soft, mild tenderness at incisions site, no rebound pain, BS +, all incisions intact, no redness, Musculoskeletal: no cyanosis or clubbing, extremities motor strength 5/5 Skin: no rashes, warm and dry Neurologic: patellar DTR's 2+ bilat, sensation intact Psychiatric: A+Ox3, euthymic affect Results & Data ([facility]) Vital Signs (Past 12 Hours) Vital Signs Temp Pulse Resp BP Pulse Ox 09/04/20 07:33 36.4 C L 55 L 17 120/76 95 09/04/20 03:39 36.4 C L 77 16 117/55 L 95 Laboratory Results Abnormal lab results 09/04/20 09/04/20 Range/Units 06:52 06:52 WBC 11.09 H (4.8-10.8) K/uL MPV 10.7 H (7.4-10.4) fL Neut # (Auto) 9.35 H (1.4-6.5) K/uL Chloride 110 H (98-107) mmol/L Glucose 119 H (70-99) mg/dl Albumin 3.1 L (3.4-5.0) gm/dl
--- NOTE | 2020-09-04 12:48 | Discharge Summary (DS) ---
DATE OF ADMISSION: 09/03/2020 DATE OF DISCHARGE: 09/04/2020 ADMISSION DIAGNOSIS: Acute appendicitis. DISCHARGE DIAGNOSIS: Acute appendicitis. OPERATION: Laparoscopic appendectomy. SURGEON: Janice Corbett MD. DETAILS OF DISCHARGE SUMMARY: This is a 60-year-old female who presented to the ED with acute abdomi nal pain. The patient had a CT scan diagnosis of acute appendicitis. We took the patient to the OR, we did laparoscopic appendectomy. The patient tolerated the procedure well. After the procedure, t he patient was transferred to regular floor and later on, the patient is doing fine, tolerated a diet . No nausea, no vomiting, no fever or temperature. PHYSICAL EXAMINATION: VITAL SIGNS: Temperature is 36.4, respiratory rate 17, heart rate 55, blood pressure 120/76, O2 satu ration 95% on room air. GENERAL: The patient is alert, awake, oriented x3. HEENT: With normal limitation. NEUROLOGIC: Intact. NECK: No JVD. CHEST: Bilateral lung sounds clear. HEART: Normal S1 and S2. No murmur. ABDOMEN: Soft, mild tenderness on the incision site. No rebound pain. All incisions intact. No re dness. Bowel sounds positive. EXTREMITIES: No edema. The patient wants to go home today. We gave the patient postop care instruction. The patient underst ands and we will follow up the patient in 2 weeks. Job ID: [id number]
[2020-09-06] MEDS ORDERED: LEVOTHYROXINE SODIUM 100 MCG TABLET PO SCH (06:30)
== END 2020-09-04 12:50 | disposition home or self-care (01) ==
LOC: ED 00:15 → OR 06:54 → PACUINP 06:54 → 3N 10:41

== ENCOUNTER 2024-04-07 03:12 | Observation (INO) ==
--- NOTE | 2024-04-07 03:40 | Emergency Department Note ---
Impression & Plan Chest pain, Elevated troponin, Thyroid dysfunction ED Provider Note ED Provider Note NAME: JOB GUERRA AGE:63 SEX: Female : 1960 ARRIVES VIA: Private vehicle INFORMANT: Patient ED PROVIDER(s): Nathalie Garg DO CHIEF COMPLAINT: Chest pain HPI: This is a 63-year-old female who presents to the emergency department with concern for chest pain. Patient states she woke up around midnight with a sharp pain on the left side of her chest. She states it was very brief however the first episode radiated down the left side of her body all the way down into her left foot. She states she then had a sense of pressure in the left chest. She felt as though her heart rate was slow, denies any racing skipping or fluttering. She states a few weeks ago she did have a GI illness but had since recovered. Patient also has a history of thyroid dysfunction, and has not taken her thyroid medication in several weeks and has felt improved. She states she is working with her family doctor regarding the thyroid issues and also regarding some ongoing joint pains. No other recent illness or medication changes. She has noticed some symptoms of her hypothyroidism recurring and did have scheduled repeat labs with her PCP for April 15. No prior cardiac history. She states she has had "palpitations" previously with thyroid dysfunction. No significant family history of cardiac problems. PAST MEDICAL HISTORY:See Below PAST SURGICAL HISTORY:See Below FAMILY HISTORY:See Below SOCIAL HISTORY:See Below HOME MEDICATIONS:See Below ALLERGIES:See Below VITALS:See Below PHYSICAL EXAMINATION: GENERAL: alert, well appearing, well nourished, no distress, non-toxic EYE EXAM: normal conjunctiva, PERRL and EOM's grossly intact OROPHARYNX: no exudate, no erythema, lips, buccal mucosa, and tongue normal and mucous membranes are moist NECK: supple, no nuchal rigidity, no adenopathy, non-tender LUNGS: Clear to auscultation. Normal chest wall mechanics, no w/r/r HEART: no murmurs, S1 normal and S2 normal, no reproducible pain with palpation ABDOMEN: abdomen soft, non-tender, normo-active bowel sounds, no masses, no rebound or guarding. SKIN: no rashes, petechiae, orbruising UPPER EXTREMITIES: upper extremities are grossly normal. FROM, nml pulses b/l. LOWER EXTREMITIES: No pitting edema. FROM, nml pulses b/l. NEURO EXAM: Normal sensorium, cranial nerves II-XII grossly intact, normal speech, no facial droop,nogross weakness of arms, no gross weakness of legs. Gross sensation intact. No ataxia. Vital Signs: reviewed and remarkable Differential Diagnosis: acute coronary syndrome, pericarditis, pulmonary embolus, aortic dissection, pneumonia, pneumothorax, musculoskeletal pain, shingles, GERD, GI bleed, as well as others were considered MEDICAL DECISION MAKING: This is a 63-year-old female who presents to the emergency department due to concern for chest pain/pressure and sense of slow heart rate. Labs drawn and sent, IV established, EKG and chest x-ray performed at bedside interpreted by me and patient monitored on telemetry. Patient admits to noncompliance with her thyroid medication recently. She does have a history of hypertension and hyperlipidemia. No other prior cardiac evaluation. She was afebrile and hemodynamically stable throughout. Initial troponin borderline elevated. Patient continued to have intermittent episodes of left-sided chest pain. No ectopy or dysrhythmia noted, mild bradycardia was noted however no heart block. TSH markedly elevated and consistent with her thyroid history and noncompliance with medication. Repeat troponin drawn and sent and was uptrending. Given concern for risk factors for CAD, uptrending troponin, and persistent intermittent chest pain, case discussed with the hospitalist team for additional evaluation and management. We did discuss the thyroid dysfunction and patient verbalized understanding. Consultation(s): 07: Discussed with Dr. Montelongo, [facility] hospitalist team, for additional evaluation and management. ER Treatment Provided: See below Diagnostics Interpreted By Me: -ECG: Sinus bradycardia at 56, normal axis, normal intervals, no acute ST/T wave changes, low voltage noted -Cardiac Monitoring: An order was placed for continuous cardiac monitoring. The monitor shows a rate of 59 with sinus bradycardia rhythm. -Laboratory studies: As stated above and show below. -Imaging studies: X-ray Chest: A single view study of the chest was reviewed and was negative for cardiomegaly, focal infiltrate, effusion, pulmonary edema, or wide mediastinum. Triage Nursing Note Reviewed Prior/Outside Records Reviewed Past Med/Surg History Problem List (Updated 04/07/24 @ 07:59 by Nathalie Garg DO) Thyroid dysfunction (Acute) Elevated troponin (Acute) Chest pain (Acute) Encounter for pre-operative examination Dietary counseling and surveillance Asthma Fatty infiltration of liver Postmenopausal bleeding Obesity History of colon polyps Hypothyroidism Hyperlipidemia Sleep apnea cpap Medical History History of COVID-19 02/2022--mild symptoms, no symptoms now Palpitations Nabothian cyst Graves disease Claustrophobia Chronic sinusitis Anxiety Gluten intolerance NOT OFFICIALLY DIAGNOSED WITH CELIAC'S DISEASE Enlarged thyroid H/O HAD RADIOACTIVE IODINE 2006 Mitral valve prolapse No sports physician, 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--on diltiazem Surgical History History of wisdom tooth extraction History of laparoscopic appendectomy H/O shoulder surgery 2020 History of surgery on integumentary structure L FOOT MOLE (BENIGN) REMOVED BETWEEN 4TH/5TH TOE H/O cyst of breast R BENIGN History of colonoscopy S/P correction of deviated nasal septum Family History Father Family history of reaction to anesthesia WAKES UP COMBATIVE Son Family history of reaction to anesthesia WAKES UP COMBATIVE Other Alcohol abuse Denies family history of Ovarian cancer Breast cancer Colorectal cancer Social History Smoking Status: Never smoker Tobacco Type: Cigarettes Second Hand Exposure: No; Do You Dip or Chew Tobacco: No; Tobacco Cessation Education Requested by Patient: No Hx Alcohol Use: No Hx Substance Use: No Preferred Language: Welsh Communication Ability: Effective 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 Beliefs That Will Affect Care: None Current Living Situation: Spouse 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al status: employed 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: , 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 Other Information That Helps Us Care for You: No Feels Safe at Home: Yes Safety Concerns: Feels Safe At This Time Diet: regular Physical Activity Frequency: Does not Exercise Assistive Devices: None Allergies Allergies Allergy/AdvReac Type Severity Reaction Status Date / Time latex Allergy Intermediate RASH Verified 04/07/24 08:05 Sulfa (Sulfonamide Allergy Intermediate Rash Verified 04/07/24 08:05 Antibiotics) gluten Allergy Mild Gastrointestinal Verified 04/07/24 08:05 Upset iodine AdvReac Intermediate hyperthyroi Verified 04/07/24 08:05 d Home Meds Home Medications Medication Instructions Recorded Confirmed calcium 600 mg (as 1 tab PO HS 10/26/17 04/07/24 carbonate)-vitamin D3 5 mcg (200 unit) capsule (Calcium 600 + D(3)) coenzyme Q10 200 mg capsule (Co 200 mg PO HS 10/26/17 04/07/24 Q-10) cyanocobalamin (vitamin B-12) 1,000 mcg PO DAILY 03/02/23 04/07/24 1,000 mcg tablet (Vitamin B-12) diltiazem HCl 30 mg tablet 30 mg PO QAM 03/02/23 04/07/24 levothyroxine 100 mcg tablet 100 mcg PO 3XWK 11/25/23 04/07/24 (Synthroid) levothyroxine 112 mcg tablet 112 mcg PO 4XWK 04/07/24 04/07/24 (Synthroid) magnesium oxide 200 mg PO DAILY 04/07/24 04/07/24 red yeast rice 600 mg capsule 600 mg PO DAILY 04/07/24 04/07/24 Results & Data (ED) Vital Signs Vital Signs - 24 hr 04/07/24 04:09 04/07/24 04:21 04/07/24 04:30 Pulse Rate 56 L 54 L 54 L Pulse Rate [Apical] Pulse Rate from SpO2 Sensor 55 L 54 L 55 L Pulse Rhythm [Apical] Pulse Strength [Apical] Respiratory Rate 18 16 15 Respiratory Effort / Characteristics Respiratory Depth Respiratory Pattern Blood Pressure Blood Pressure [Right Arm] Blood Pressure Mean Blood Pressure Mean [Right Arm] Blood Pressure Position [Right Arm] Pulse Oximetry 97 97 95 Oxygen Delivery Method 04/07/24 04:42 04/07/24 04:45 04/07/24 04:48 Pulse Rate 56 L Pulse Rate [Apical] 62 Pulse Rate from SpO2 Sensor 56 L Pulse Rhythm [Apical] Regular Pulse Strength [Apical] Respiratory Rate 15 16 Respiratory Effort / Characteristics Non-Labored Spontaneous Respiratory Depth Normal Respiratory Pattern Regular Blood Pressure 173/87 H Blood Pressure [Right Arm] 173/87 H Blood Pressure Mean 112 Blood Pressure Mean [Right Arm] 115 Blood Pressure Position [Right Arm] Semi-fowlers Pulse Oximetry 96 98 Oxygen Delivery Method Room Air 04/07/24 04:48 04/07/24 04:54 04/07/24 05:15 Pulse Rate 53 L 54 L 63 Pulse Rate [Apical] Pulse Rate from SpO2 Sensor 54 L 54 L 65 Pulse Rhythm [Apical] Pulse Strength [Apical] Respiratory Rate 15 12 13 Respiratory Effort / Characteristics Respiratory Depth Respiratory Pattern Blood Pressure Blood Pressure [Right Arm] Blood Pressure Mean Blood Pressure Mean [Right Arm] Blood Pressure Position [Right Arm] Pulse Oximetry 97 96 98 Oxygen Delivery Method 04/07/24 05:21 04/07/24 05:30 04/07/24 05:42 Pulse Rate 61 56 L 61 Pulse Rate [Apical] Pulse Rate from SpO2 Sensor 61 57 L 60 Pulse Rhythm [Apical] Pulse Strength [Apical] Respiratory Rate 13 16 22 Respiratory Effort / Characteristics Respiratory Depth Respiratory Pattern Blood Pressure Blood Pressure [Right Arm] Blood Pressure Mean Blood Pressure Mean [Right Arm] Blood Pressure Position [Right Arm] Pulse Oximetry 97 97 97 Oxygen Delivery Method 04/07/24 05:45 04/07/24 06:23 04/07/24 07:01 Pulse Rate Pulse Rate [Apical] 58 L 55 L 54 L Pulse Rate from SpO2 Sensor Pulse Rhythm [Apical] Regular Regular Pulse Strength [Apical] Normal Respiratory Rate 14 16 18 Respiratory Effort / Characteristics Non-Labored Non-Labored Spontaneous Non-Labored Respiratory Depth Normal Normal Normal Respiratory Pattern Regular Regular Blood Pressure Blood Pressure [Right Arm] 194/70 H 153/65 H 151/75 H Blood Pressure Mean Blood Pressure Mean [Right Arm] 111 94 100 Blood Pressure Position [Right Arm] Lying Semi-fowlers Pulse Oximetry 98 98 99 Oxygen Delivery Method Room Air Room Air Room Air 04/07/24 07:33 Pulse Rate 55 L Pulse Rate [Apical] Pulse Rate from SpO2 Sensor Pulse Rhythm [Apical] Pulse Strength [Apical] Respiratory Rate Respiratory Effort / Characteristics Respiratory Depth Respiratory Pattern Blood Pressure Blood Pressure [Right Arm] Blood Pressure Mean Blood Pressure Mean [Right Arm] Blood Pressure Position [Right Arm] Pulse Oximetry Oxygen Delivery Method Laboratory Data 04/07/24 03:42 04/07/24 03:42 Lab Results 04/07/24 04/07/24 Range/Units 03:42 05:38 WBC 4.23 L (4.8-10.8) K/ul RBC 5.33 (4.20-5.40) M/uL Hgb 16.3 H (12.0-16.0) g/dl Hct 47.5 H (37.0-47.0) % MCV 89.1 (80.0-100.0) fL MCH 30.6 (25.0-34.0) pg MCHC 34.3 (32.0-36.0) g/dL RDW Std Deviation 42.0 (36.4-46.3) fL RDW Coeff of Kinsey 12.9 (11.5-14.5) % Plt Count 163 (130-400) K/uL MPV 10.1 (9.4-12.4) fL Immature Gran % (Auto) 0.0 % Neut % (Auto) 39.7 % Lymph % (Auto) 49.4 % Jennings % (Auto) 7.1 % Eos % (Auto) 3.1 % Baso % (Auto) 0.7 % Neut # (Auto) 1.68 (1.40-6.50) K/uL Lymph # (Auto) 2.09 (1.20-3.40) K/uL Jennings # (Auto) 0.30 (0.11-0.59) K/uL Eos # (Auto) 0.13 (0.00-0.50) K/uL Baso # (Auto) 0.03 (0.00-0.20) K/uL Immature Gran # (Auto) 0.00 L (0.01-0.20) K/uL D-Dimer 280 (0-500) ug/L FEU Sodium 139 (136-145) mmol/L Potassium 4.0 (3.5-5.1) mmol/L Chloride 107 (98-107) mmol/L Carbon Dioxide 27 (21-32) mmol/L Anion Gap 5 (3-11) BUN 15 (6-23) mg/dl Creatinine 0.92 (0.6-1.2) mg/dl Est Cr Clr Drug Dosing 75.0 ml/min eGFR 69.10 BUN/Creatinine Ratio 16.3 (10-20) Glucose 100 H (70-99(Fasting)) mg/dl Calcium 9.6 (8.6-10.3) mg/dl Magnesium 2.2 (1.7-2.4) mg/dl Total Bilirubin 0.4 (0.2-1.0) mg/dl AST 32 (13-39) U/L ALT 35 (7-52) U/L Alkaline Phosphatase 73 (34-104) U/L Troponin I High Sens 22.2 H 23.9 H (0-14) pg/ml Total Protein 7.1 (6.0-8.3) gm/dl Albumin 4.3 (3.4-5.0) gm/dl Globulin 2.8 (2.5-4.0) gm/dl Albumin/Globulin Ratio 1.5 (0.9-2) TSH 48.496 H (0.300-4.500) uIu/ml Free T4 0.46 L (0.61-1.60) ng/dl Administered Medications Acetaminophen (Acetaminophen 325 Mg Tab) 650 mg PO Q4H PRN PRN Reason: Pain or Fever Stop: 05/07/24 07:41 Last Admin: 04/07/24 19:53 Dose: 650 mg Documented By: Admin: 04/07/24 12:10 Dose: 650 mg Documented By: DONN Enoxaparin Sodium (Enoxaparin Inj 40 Mg/0.4 Ml Syr) 40 mg SQ QPM [facility] Stop: 05/07/24 20:59 Last Admin: 04/07/24 19:56 Dose: Not Given Documented By: BETHANY Sodium Chloride (Nss) 1,000 mls @ 75 mls/hr IV .[id number] [facility] Stop: 04/08/24 04:44 Last Admin: 04/07/24 22:37 Dose: 75 mls/hr Documented By: Infusion: 04/07/24 22:37 Dose: Infused Documented By: Infusion: 04/07/24 18:44 Dose: 75 mls/hr Documented By: Admin: 04/07/24 12:39 Dose: 125 mls/hr Documented By: Infusion: 04/07/24 12:39 Dose: Infused Documented By: Admin: 04/07/24 04:51 Dose: 125 mls/hr Documented By: EVARISTO Levothyroxine Sodium (Levothyroxine Sodium 125 Mcg Tablet) 125 mcg PO DAILYBB [facility] Stop: 05/07/24 07:39 Last Admin: 04/07/24 09:02 Dose: 125 mcg Documented By: ADALBERTO Discontinued Medications Diltiazem HCl (Diltiazem Hcl 30 Mg Tab) 30 mg PO NOW ONE Stop: 04/07/24 08:19 Last Admin: 04/07/24 09:59 Dose: 30 mg Documented By: MMG Acetaminophen (Ofirmev) 1,000 mg in 100 mls @ 400 mls/hr IV NOW STA Stop: 04/07/24 04:54 Last Infusion: 04/07/24 05:06 Dose: Infused Documented By: HazelT Admin: 04/07/24 04:51 Dose: 400 mls/hr Documented By: EVARISTO Famotidine (Pepcid 20mg Iv Push) 20 mg in 5 mls @ 2.5 mls/min IV NOW STA Stop: 04/07/24 06:06 Last Admin: 04/07/24 06:13 Dose: 2.5 mls/min Documented By: EVARISTO Nitroglycerin (Nitroglycerin 2% Ointment 30gm Tube) 0.5 inch EXT NOW STA Stop: 04/07/24 07:25 Last Admin: 04/07/24 07:36 Dose: 0.5 inch Documented By: ADALBERTO Imaging Data Radiologist's Impression: Chest X-Ray 04/07/24 03:34 EXAM: XR chest 1V portable CLINICAL HISTORY: Chest pain. TECHNIQUE: An X-ray image of the chest is obtained in AP projection. COMPARISON: 11/25/2023 FINDINGS: Pulmonary Parenchyma: Lungs are clear bilaterally. No evidence of consolidation, collapse, or focal opacities. No pulmonary nodules are identified. No evidence of pleural effusion or pleural thickening. Heart and Mediastinum: Heart size and shape are normal. No mediastinal widening or masses. No hilar or mediastinal lymphadenopathy. Bony Thorax: Bony thorax appears intact without fractures or deformities. Soft Tissues: Soft tissues overlying the chest wall are unremarkable. IMPRESSION: Normal chest X-ray. No acute cardiopulmonary abnormalities are identified. Unchanged study. Electronically signed by Adonis Lowery 04-07-2024 05:31 AM Discharge Plan Visit Data Chief Complaint: Cardiac Assessment Stated Complaint: CHEST PAIN,NUMBNESS IN HAND,JAW PAIN ED Provider: Nathalie Garg Discharge Problem: Chest pain, Elevated troponin, Thyroid dysfunction Patient Disposition: Admitted As Inpatient Discharge Instructions Interventions: ED Discharge Assessment Last Done: 04/07/24 14:27
[2024-04-07 03:55] LABS: Basophils # (auto) 0.03 K/uL (0.00-0.20); Basophils % (auto) 0.7 %; Eosinophils # (auto) 0.13 K/uL (0.00-0.50); Eosinophils % (auto) 3.1 %; Hematocrit (blood only) 47.5 % (37.0-47.0); Hemoglobin 16.3 g/dl (12.0-16.0); Lymphocytes # (auto) 2.09 K/uL (1.20-3.40); Lymphocytes % (auto) 49.4 %; Mean Corpuscular Hemoglobin 30.6 pg (25.0-34.0); Mean Corpuscular Hgb Conc 34.3 g/dL (32.0-36.0); Mean Corpuscular Volume 89.1 fL (80.0-100.0); Mean Platelet Volume 10.1 fL (9.4-12.4); Monocytes % (auto) 7.1 %; Neutrophils # (auto) 1.68 K/uL (1.40-6.50); Neutrophils % (auto) 39.7 %; Platelet Count 163 K/uL (130-400); RDW Coefficient of Variation 12.9 % (11.5-14.5); Red Blood Count 5.33 M/uL (4.20-5.40); White Blood Count 4.23 K/ul (4.8-10.8)
[2024-04-07 04:13] LABS: Albumin Globulin Ratio 1.5 (0.9-2); Albumin Level 4.3 gm/dl (3.4-5.0); BUN Creatinine Ratio 16.3 (10-20); Bilirubin,Total 0.4 mg/dl (0.2-1.0); Calcium 9.6 mg/dl (8.6-10.3); Globulin 2.8 gm/dl (2.5-4.0); Magnesium 2.2 mg/dl (1.7-2.4); Total Protein 7.1 gm/dl (6.0-8.3)
[2024-04-07 04:19] LABS: Troponin I High Sensitivity 22.2 pg/ml (0-14)
[2024-04-07 04:31] LABS: D Dimer 280 ug/L FEU (0-500)
[2024-04-07] MEDS: SODIUM CHLORIDE 0.9% 1,000 ML IV SCH (04:51)
[2024-04-07] MEDS: ACETAMINOPHEN 1,000 MG/100 ML VIAL IV STA (04:51)
[2024-04-07 05:02] LABS: Thyroid Stimulating Hormone 48.496 uIu/ml (0.300-4.500)
--- NOTE | 2024-04-07 05:32 | XRay Report ---
EXAM: XR chest 1V portable CLINICAL HISTORY: Chest pain. TECHNIQUE: An X-ray image of the chest is obtained in AP projection. COMPARISON: 11/25/2023 FINDINGS: Pulmonary Parenchyma: Lungs are clear bilaterally. No evidence of consolidation, collapse, or focal opacities. No pulmonary nodules are identified. No evidence of pleural effusion or pleural thickening. Heart and Mediastinum: Heart size and shape are normal. No mediastinal widening or masses. No hilar or mediastinal lymphadenopathy. Bony Thorax: Bony thorax appears intact without fractures or deformities. Soft Tissues: Soft tissues overlying the chest wall are unremarkable. IMPRESSION: Normal chest X-ray. No acute cardiopulmonary abnormalities are identified. Unchanged study. Electronically signed by Adonis Lowery 04-07-2024 05:31 AM
[2024-04-07 05:37] LABS: T4 Free Thyroxine 0.46 ng/dl (0.61-1.60)
[2024-04-07] MEDS ORDERED: fentaNYL citrate PF 100 MCG/2 ML VIAL IV PRN (06:05)
[2024-04-07] MEDS: FAMOTIDINE 20MG IV PUSH 20 MG/5 ML SYR IV STA (06:13)
[2024-04-07] MEDS: NITROGLYCERIN 2% OINTMENT 30GM TUBE EXT STA (07:36)
[2024-04-07] MEDS ORDERED: NITROGLYCERIN 2% OINTMENT 30GM TUBE EXT PRN (08:19)
--- NOTE | 2024-04-07 08:38 | History & Physical Report ---
Date of Service April 07, 2024 Assessment & Plan (1) Hypothyroidism: Plan: as above, hx Graves/radioactive iodine in 2006 in [place] elevated TSH/low T4, T3 and synthroid resumed with recs repeat TFT 4wks/endocrinology follow up at [facility]. (2) Chest pain: Plan: 63yo female PMHx hypothyroidism, HLD, asthma, fatty liver disease presented to ER with chest pain on eft side with radiation to left side which lasted briefly and subsided but continued brief episodes reported while in ER. Recent "GI bug" and reported having been off her synthroid and felt better off medication and was discussed w/ PCP about trial off? Review of med fill and further discussion w/ patient on repeat evals she had been decreasing her Synthroid w/ PCP (Prior fill Rx: 125mcg in June, 112 mcg in December and 100mcg in January w/ instructions at that time to alternative with 125mcg dose 4x/wk) as PCP didn't like where her levels were at however reported to me she had been OFF HER SYNTHYROID FOR THREE WEEKS and hx Graves s/p radioactive iodine treatment in 2006 in [place] and TSH checked and ELEVATED to 48.49 on admission with low T4 0.46, T3 2.11. EKG w/ sinus osiel on admission 56bpm, no tachycardia or afib on monitor and on cardizem 30mg daily at baseline. RESUMED SYNTHROID 125mcg PO daily, IVF for hydration overnight and ECHO ordered w/ cardiology consult Troponin minimal elevation but flat 22-24 and no further CP and desire to discharge. Suspect minimal elevation likely 2nd to elevated BPs but defer ongoing adjustment to PCP if remains elevated outpatient. Notable with her hypothyroidism she did report feeling "fluttering" sensation in chest and given only hx HLD (not on statin), placed on baby aspirin 81mg daily and did repeat lipid panel prior to me given prior and Cholesterol was elevated to 256 (on red yeast rice/CoQ10 at baseline) and LDL was 166, HDL 60 with stable TRG 150 discussed further with patient given reports "intolerance" to statins HOWEVER only ever tried crestor and rec discussion w/ PCP about consideration for pravastatin/other for risk prevention ECHO obtained and noted normal LV systolic function, normal EF 60-65%. No wma. No significant valvular pathology and no change from prior. 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 If any arrhythmia would req AC for stroke prevention as discussed with patient untreated hypothyroidism with increased risk for afib and rec getting this and having follow up but also discussed s/sx to return to ER if any worsening/ongoing CP. They are also to be arranging for outpatient stress testing however notable did have negative stress testing in November, reassuring. At me, rx Synthroid 125mcg (name brand), rec ASA 81mg daily. Event monitor and stress testing outpatient. Rec repeat TFT in 4wks/adjustment as needed. Referral to endocrinology given her hx was discussed and CM Navigator to assist in obtaining follow up appointment at [facility] did call patient after me and discussed listed hx DANIELA-- reports she has MILD DANIELA/machine at home but does endorse that she "hates it". Discussed w/ hypothyroidism and already increased risk for afib that untreated DANIELA can contribute as well as worsen her BP and rec discussing with PCP about alternative mask/nasal pillow/etc in follow up and rec compliance (3) Hyperlipidemia: Plan: prior report intol to statin, on red yeast rice/coQ10. Further discussion only ever tried crestor in past. Rec f/u PCP given Chol 256, LDL 166 to trial pravastatin in meantime. Improve diet/activity (4) Graves disease: (5) Sleep apnea: Plan: mild, has machine at home per patient but as above has not been using. Discussed risks for untreated DANIELA w/ HTN/afib/etc and rec compliance w/ home machine and if unable to tolerate mask consider alternative mask/nasal pillow in f/u PCP Plan This is a 63 year old female w/ past medical history of hypothyroidism, hyperlipidemia, asthma, fatty liver who presented to the ED on 04/07 for chest pain. #Chest pain Etiology: currently unknown, could be secondary to ACS vs thyroid storm. PE/pneumonia unlikely. CXR: negative Troponin 22.2 --> 23.9, repeat pending Stress echo 12/12/23 - normal w/o evidence of inducible ischemia. hypertensive response to exercise. LV systolic function normal. Grade I diastolic dysfunction. mild mitral regurg. RV systolic pressure normal. Echo pending Cardiology consult pending, appreciate recommendations. Continue Diltiazem on admission. Nitro paste prn. Admit on tele for continuous cardiac monitoring. #Hypothyroidism TSH found to be significantly elevated 48.496 w/ free T4 of 0.46 Resume Levothyroxine, dose set at 125mcg, follow up outpatient in ~4-6 weeks for repeat TSH Code: full DVT prophylaxis: Lovenox Case was discussed w/ Dr. Montelongo at time of admission History of Present Illness Primary Care Provider: Oracio Gipson This is a 63 year old female w/ past medical history of hypothyroidism, hyperlipidemia, asthma, fatty liver who presented to the ED on 04/07 for chest pain. The patient was seen and examined. She reports she awoke abruptly with left sided chest pain that radiated down her entire left side overnight. She reports that it lasted briefly and then subsided. She states she is continuing to experience brief episodes of chest pain while in the ED. she states that the worst it was a 6/10 on pain scale and currently was 3/10. She reports that she recently contracted the GI bug and was off her Synthroid for 4 days. During that time, she felt her muscle and body aches were better off the medication. She states she discussed this with her PCP and they decided to go off the Synthroid and see how she did. She was to get repeat labs on 04/15 regarding her thyroid. She denies any palpitations but she does report she feels that her heart is beating slower than usual. She denies any shortness of breath, fever, chills, current GI symptoms. Denies any lower extremity edema. Patient also reports she started to take Red yeast rice currently and was only taking 1 capsule daily to ensure her body could handle it. While in the ED, patient was found to have a negative CXR. Mildly elevated troponin, 22.2 --> 23.9 w/ repeat pending at noon. Her TSH was found to be significantly elevated at 48.496 w/ a free T4 of 0.46. Allergies Allergy/AdvReac Type Severity Reaction Status Date / Time latex Allergy Intermediate RASH Verified 04/07/24 08:05 Sulfa (Sulfonamide Allergy Intermediate Rash Verified 04/07/24 08:05 Antibiotics) gluten Allergy Mild Gastrointestinal Verified 04/07/24 08:05 Upset iodine AdvReac Intermediate hyperthyroi Verified 04/07/24 08:05 d Home Medications Medication Instructions Recorded Confirmed Type calcium 600 mg (as 1 tab PO HS 10/26/17 04/07/24 History carbonate)-vitamin D3 5 mcg (200 unit) capsule (Calcium 600 + D(3)) coenzyme Q10 200 mg capsule (Co 200 mg PO HS 10/26/17 04/07/24 History Q-10) cyanocobalamin (vitamin B-12) 1,000 mcg PO DAILY 03/02/23 04/07/24 History 1,000 mcg tablet (Vitamin B-12) diltiazem HCl 30 mg tablet 30 mg PO QAM 03/02/23 04/07/24 History magnesium oxide 200 mg PO DAILY 04/07/24 04/07/24 History red yeast rice 600 mg capsule 600 mg PO DAILY 04/07/24 04/07/24 History Synthroid 125 mcg tablet 125 mcg PO DAILY #30 tabs 04/08/24 Rx (levothyroxine) aspirin 81 mg capsule 81 mg PO DAILY #30 caps 04/08/24 Rx Past Med/Surg History Problem List (Updated 04/07/24 @ 07:59 by Nathalie Garg DO) Thyroid dysfunction (Acute) Elevated troponin (Acute) Chest pain (Acute) Encounter for pre-operative examination Dietary counseling and surveillance Asthma Fatty infiltration of liver Postmenopausal bleeding Obesity History of colon polyps Hypothyroidism Hyperlipidemia Sleep apnea cpap Medical History History of COVID-19 02/2022--mild symptoms, no symptoms now Palpitations Nabothian cyst Graves disease Claustrophobia Chronic sinusitis Anxiety Gluten intolerance NOT OFFICIALLY DIAGNOSED WITH CELIAC'S DISEASE Enlarged thyroid H/O HAD RADIOACTIVE IODINE 2006 Mitral valve prolapse 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, 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--on diltiazem Surgical History History of wisdom tooth extraction History of laparoscopic appendectomy H/O shoulder surgery 2020 History of surgery on integumentary structure L FOOT MOLE (BENIGN) REMOVED BETWEEN 4TH/5TH TOE H/O cyst of breast R BENIGN History of colonoscopy S/P correction of deviated nasal septum Family History Father Family history of reaction to anesthesia WAKES UP COMBATIVE Son Family history of reaction to anesthesia WAKES UP COMBATIVE Other Alcohol abuse Denies family history of Ovarian cancer Breast cancer Colorectal cancer Social History Smoking Status: Never smoker Tobacco Type: Cigarettes Second Hand Exposure: No; Do You Dip or Chew Tobacco: No; Hx Alcohol Use: No Hx Substance Use: No Preferred Language: Sudanese Communication Ability: Effective 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 Psychiatric: A+Ox3, euthymic affect Results & Data Results & Data Vital Signs (Past 12 Hours) Vital Signs Temp Pulse Pulse Resp BP BP Pulse Ox 04/07/24 07:33 55 L 04/07/24 07:01 54 L 18 151/75 H 99 04/07/24 06:23 55 L 16 153/65 H 98 04/07/24 05:45 58 L 14 194/70 H 98 04/07/24 05:42 61 22 97 04/07/24 05:30 56 L 16 97 04/07/24 05:21 61 13 97 04/07/24 05:15 63 13 98 04/07/24 04:54 54 L 12 96 04/07/24 04:48 53 L 15 97 04/07/24 04:48 173/87 H 04/07/24 04:45 62 16 173/87 H 98 04/07/24 04:42 56 L 15 96 04/07/24 04:30 54 L 15 95 04/07/24 04:21 54 L 16 97 04/07/24 04:09 56 L 18 97 04/07/24 03:57 57 L 14 96 04/07/24 03:42 59 L 13 04/07/24 03:39 59 L 13 04/07/24 03:30 67 04/07/24 03:18 36.5 C 59 L 16 171/110 H 98 O2 Del Method 04/07/24 07:33 04/07/24 07:01 Room Air 04/07/24 06:23 Room Air 04/07/24 05:45 Room Air 04/07/24 05:42 04/07/24 05:30 04/07/24 05:21 04/07/24 05:15 04/07/24 04:54 04/07/24 04:48 04/07/24 04:48 04/07/24 04:45 Room Air 04/07/24 04:42 04/07/24 04:30 04/07/24 04:21 04/07/24 04:09 04/07/24 03:57 04/07/24 03:42 04/07/24 03:39 04/07/24 03:30 04/07/24 03:18 Room Air Supervising Physician Co-Signing Physician Notes During face to face encounter, I obtained a history and physical examination, discussed plan of care with patient. I discussed plan of care with CARMELLA Singh. I reviewed above note and agree with it except for the following: Patient will be admitted under obs for chest pain. Doubt pulmonary emboi due to normal d dimer PG Care Time/CCT Total # of Minutes Spent Total Time Spent with Patient: Total time spent is greater than 50% in coordination of care (as documented) at patient's floor/unit and/or counseling patient: Coding Level of Care Code 77296 INT INP/OBS CARE 3/75MIN Diagnoses Hypothyroidism E03.9 Chest pain R07.9 Hyperlipidemia E78.5 Graves disease E05.00 Sleep apnea G47.30
[2024-04-07] MEDS: LEVOTHYROXINE SODIUM 125 MCG TABLET PO SCH (09:02)
[2024-04-07] MEDS: dilTIAZem HCL 30 MG TAB PO ONE (09:59)
--- NOTE | 2024-04-07 10:31 | Electrocardiogram Report ---
Test Reason : Blood Pressure : */* mmHG Vent. Rate : 56 BPM Atrial Rate : 56 BPM P-R Int : 168 ms QRS Dur : 84 ms QT Int : 432 ms P-R-T Axes : 44 5 22 degrees QTcB Int : 416 ms Sinus bradycardia Low voltage QRS Borderline ECG When compared with ECG of 25-Nov-2023 08:50, No significant change was found Confirmed by Nehemias Epstein ([id number]) on 04/07/2024 10:31:31 AM Referred By: Confirmed By: Nehemias Epstein
[2024-04-07] MEDS ORDERED: NITROGLYCERIN 2% OINTMENT 30GM TUBE EXT SCH (12:00)
[2024-04-07] MEDS: ACETAMINOPHEN 325 MG TAB PO PRN (12:10)
[2024-04-07] MEDS: ENOXAPARIN INJ 40 MG/0.4 ML SYR SQ SCH (19:56)
[2024-04-07 20:49] VITALS: TEMP 97.5
[2024-04-08 03:51] VITALS: RESP 18
[2024-04-08] MEDS ORDERED: LEVOTHYROXINE SODIUM 125 MCG TABLET PO SCH (06:30)
[2024-04-08 07:11] LABS: Troponin I High Sensitivity 23.8 pg/ml (0-14)
[2024-04-08 07:16] LABS: BUN Creatinine Ratio 11.8 (10-20); Calcium 8.8 mg/dl (8.6-10.3); Creatinine Clr Calc Pharmacy 69.8 ml/min; Potassium 3.9 mmol/L (3.5-5.1)
[2024-04-08 07:22] VITALS: BP 148/85; O2SAT 94
--- NOTE | 2024-04-08 07:43 | Hospitalist Progress Note ---
Date of Service April 08, 2024 Assessment & Plan (1) Hypothyroidism: Plan: This is a 63 year old female w/ past medical history of hypothyroidism, hyperlipidemia, asthma, fatty liver who presented to the ED on 04/07 for chest pain. Reported to me she had been off her synthroid x 3 weeks and had been having decreasing doses over the past several months as PCP not w/ levels where would like them to be. Prior fill Rx: 125mcg in June, 112 mcg in December and 100mcg in January (instructions at that time to alternative with 125mcg dose 4x/wk) TSH on admission 48.49 with LOW free T4 to 0.46 Placed on synthroid 125mcg daily, added T3 to AM labs (prior T3 3.52 in November) EKG w/ sinus osiel on admission to 56bpm, no tachycardia. On telemetry, could consider BB/propranolol. ECHO pending/Cardiology consult pending. Continues on diltiazem but if any afib/RVR would transition to BB over CCB Prior stress echo November w/o inducible ischemia to note Given IVF overnight, has been completed this morning. Monitor. Hopeful dc today pending ECHO/cards eval. #Chest pain Etiology: currently unknown, could be secondary to ACS vs thyroid storm. PE/pneumonia unlikely. CXR: negative Troponin 22.2 --> 23.9, repeat pending Stress echo 12/12/23 - normal w/o evidence of inducible ischemia. hypertensive response to exercise. LV systolic function normal. Grade I diastolic dysfunction. mild mitral regurg. RV systolic pressure normal. Echo pending Cardiology consult pending, appreciate recommendations. Continue Diltiazem on admission. Nitro paste prn. Admit on tele for continuous cardiac monitoring. Do note prior lipid panel 2022 w/ Chol 209, LDL 117. On red yeast rice and CoQ10 at baseline. Will add repeat lipid panel/likely benefit from baseline statin for risk prevention/HLD #Hypothyroidism TSH found to be significantly elevated 48.496 w/ free T4 of 0.46 Resume Levothyroxine, dose set at 125mcg, follow up outpatient in ~4-6 weeks for repeat TSH Will add T3 to AM labs Discussed w/ patient 04/07PM and agreeable to endocrinology referral as had hx radioactive iodine in 2006 in [place] for hx Graves disease, acquired hypot hyroidism Code: full DVT prophylaxis: Lovenox (2) Chest pain: (3) Graves disease: Plan: hx of such as outlined, ref to endo at dc Admission and Anticipated Discharge Date Admission Date: April 07, 2024 Results & Data Results & Data Vital Signs (Past 12 Hours) Vital Signs Temp Pulse Pulse Resp BP Pulse Ox O2 Del Method 04/08/24 07:32 48 L 04/08/24 07:18 36.4 C L 56 L 18 148/85 H 94 Room Air 04/08/24 03:50 36.4 C L 59 L 18 144/72 H 96 Room Air 04/07/24 22:42 36.4 C L 57 L 16 148/78 H 96 Room Air 04/07/24 22:32 54 L 04/07/24 20:49 36.4 C L 54 L 18 162/77 H 95 Room Air PG Care Time/CCT Total # of Minutes Spent Total Time Spent with Patient: Total time spent is greater than 50% in coordination of care (as documented) at patient's floor/unit and/or counseling patient: Coding Diagnoses Hypothyroidism E03.9 Chest pain R07.9 Graves disease E05.00
[2024-04-08] MEDS: dilTIAZem HCL 30 MG TAB PO SCH (08:15)
[2024-04-08 09:12] LABS: Chol HDL Ratio 4.3 (0-5)
[2024-04-08 09:40] LABS: Hemoglobin 15.1 g/dl (12.0-16.0); Mean Corpuscular Hemoglobin 30.1 pg (25.0-34.0); Mean Corpuscular Hgb Conc 33.6 g/dL (32.0-36.0); Mean Corpuscular Volume 89.6 fL (80.0-100.0); Mean Platelet Volume 10.4 fL (9.4-12.4); Platelet Count 146 K/uL (130-400); RDW Standard Deviation 42.4 fL (36.4-46.3); Red Blood Count 5.02 M/uL (4.20-5.40); White Blood Count 3.26 K/ul (4.8-10.8)
--- NOTE | 2024-04-08 10:32 | Discharge Summary ---
Discharge Summary Date of Service April 08, 2024 Principal Dx & Hospital Course #1 = Principal Diagnosis (1) Chest pain: 63yo female PMHx hypothyroidism, HLD, asthma, fatty liver disease presented to ER with chest pain on eft side with radiation to left side which lasted briefly and subsided but continued brief episodes reported while in ER. Recent "GI bug" and reported having been off her synthroid and felt better off medication and was discussed w/ PCP about trial off? Review of med fill and further discussion w/ patient on repeat evals she had been decreasing her Synthroid w/ PCP (Prior fill Rx: 125mcg in June, 112 mcg in December and 100mcg in January w/ instructions at that time to alternative with 125mcg dose 4x/wk) as PCP didn't like where her levels were at however reported to me she had been OFF HER SYNTHYROID FOR THREE WEEKS and hx Graves s/p radioactive iodine treatment in 2006 in [place] and TSH checked and ELEVATED to 48.49 on admission with low T4 0.46, T3 2.11. EKG w/ sinus osiel on admission 56bpm, no tachycardia or afib on monitor and on cardizem 30mg daily at baseline. RESUMED SYNTHROID 125mcg PO daily, IVF for hydration overnight and ECHO ordered w/ cardiology consult Troponin minimal elevation but flat 22-24 and no further CP and desire to discharge. Suspect minimal elevation likely 2nd to elevated BPs but defer ongoing adjustment to PCP if remains elevated outpatient. Notable with her hypothyroidism she did report feeling "fluttering" sensation in chest and given only hx HLD (not on statin), placed on baby aspirin 81mg daily and did repeat lipid panel prior to dc given prior and Cholesterol was elevated to 256 (on red yeast rice/CoQ10 at baseline) and LDL was 166, HDL 60 with stable TRG 150 discussed further with patient given reports "intolerance" to statins HOWEVER only ever tried crestor and rec discussion w/ PCP about consideration for pravastatin/other for risk prevention ECHO obtained and noted normal LV systolic function, normal EF 60-65%. No wma. No significant valvular pathology and no change from prior. Notable borderline concentric LVH and should likely have ongoing BP measurements in f/u and escalation in HTN regimen in f/u with PCP Discussed with cardiology given patient desires to go home/no further symptoms and they are arranging for event monitor and patient can cook pickled meat on way home. If any arrhythmia would req AC for stroke prevention as discussed with patient untreated hypothyroidism with increased risk for afib and rec getting this and having follow up but also discussed s/sx to return to ER if any worsening/ongoing CP. They are also to be arranging for outpatient stress testing however notable did have negative stress testing in November, reassuring. At id, rx Synthroid 125mcg (name brand), rec ASA 81mg daily. Event monitor and stress testing outpatient. Rec repeat TFT in 4wks/adjustment as needed. Referral to endocrinology given her hx was discussed and CM Navigator to assist in obtaining follow up appointment at id notable did call patient after id and discussed listed hx DANIELA-- reports she has MILD DANIELA/machine at home but does endorse that she "hates it". Discussed w/ hypothyroidism and already increased risk for afib that untreated DANIELA can contribute as well as worsen her BP and rec discussing with PCP about alternative mask/nasal pillow/etc in follow up and rec compliance (2) Hypothyroidism: as above, hx Graves/radioactive iodine in 2006 in [place] elevated TSH/low T4, T3 and synthroid resumed with recs repeat TFT 4wks/endocrinology follow up at id. (3) Hyperlipidemia: prior report intol to statin, on red yeast rice/coQ10. Further discussion only ever tried crestor in past. Rec f/u PCP given Chol 256, LDL 166 to trial pravastatin in meantime. Improve diet/activity (4) Graves disease: (5) Sleep apnea: mild, has machine at home per patient but as above has not been using. Discussed risks for untreated DANIELA w/ HTN/afib/etc and rec compliance w/ home machine and if unable to tolerate mask consider alternative mask/nasal pillow in f/u PCP Notes For Next Care Provider Repeat TFT 4 wk/adjustment as needed ASA 81mg daily given risk for afib but no evidence on monitor. -Event monitor 7 day arranged by cards prior to dc and arranging outpt stress given no further CP and suspected sx from untreated hypothyroidism and dehydration on admission w/ elevated Hgb but stable renal function. Ref to endo for f/u given hx Graves/iodine therapy given adjustments recently for closer monitoring/management as discussed with patient. Rec monitoring BPs in office in follow up/escalation in tx pending serial measurements but also discussed CPAP compliance and doesn't really use. Rec consideration alternative mask vs nasal pillows, should help BP and prevent development afib and did spend decent amount of time with patient regarding education on untreated hypothyroidism/risk for afib which she was unaware of as well as increased risk for afib w/ untreated sleep apnea as well as improvement in BP w/ treatment of DANIELA and hopefully improved compliance in follow up with her CPAP. Rec ongoing discussion regarding HLD/cholesterol >200. Reported trialed crestor but would rec alternative for risk prevention Medication Changes From Visit Synthroid 125mcg PO daily ASA 81mg daily Admission HPI Per Admitting Provider This is a 63 year old female w/ past medical history of hypothyroidism, hyperlipidemia, asthma, fatty liver who presented to the ED on 04/07 for chest pain. The patient was seen and examined. She reports she awoke abruptly with left sided chest pain that radiated down her entire left side overnight. She reports that it lasted briefly and then subsided. She states she is continuing to experience brief episodes of chest pain while in the ED. she states that the worst it was a 6/10 on pain scale and currently was 3/10. She reports that she recently contracted the GI bug and was off her Synthroid for 4 days. During that time, she felt her muscle and body aches were better off the medication. She states she discussed this with her PCP and they decided to go off the Synthroid and see how she did. She was to get repeat labs on 04/15 regarding her thyroid. She denies any palpitations but she does report she feels that her heart is beating slower than usual. She denies any shortness of breath, fever, chills, current GI symptoms. Denies any lower extremity edema. Patient also reports she started to take Red yeast rice currently and was only taking 1 capsule daily to ensure her body could handle it. While in the ED, patient was found to have a negative CXR. Mildly elevated troponin, 22.2 --> 23.9 w/ repeat pending at noon. Her TSH was found to be significantly elevated at 48.496 w/ a free T4 of 0.46. Admission Exam Per Admitting Provider Constitutional: WD/WN, vitals as above Eyes: PERRL, conjunctivae normal, anicteric sclerae Respiratory: normal respiratory effort, lungs clear to auscultation Cardiovascular: RRR, no murmur, no edema Musculoskeletal: moves all extremities. Psychiatric: A+Ox3, euthymic affect Discharge Exam General 63yo female ambulating in the room, BMI 39 Head atraumatic, normocephalic, mmm, +thick neck Resp: even/unlabored, no wheezing/rales, on room air CV: RRR, sinus osiel at times on monitor, no significant m/r/g, GI: +BS, soft/NT : no christina MSK/Neuro: nonfocal, strength equal, ambulating room without issue Psych: AOx3, cooperative Discharge Plan Discharge Items Patient Disposition: Home - Self-Care Reason For Visit: CHEST PAIN Discharge Diagnosis: Chest pain, hypothyroidism Goals: You have been hospitalized for an acute medical problem. During your stay at [facility], we have made an effort to correct the problem that brought you to the hospital while keeping you as comfortable as possible. Medications were used to bring your condition under control and your discharge instructions will include directions for any medications you should take after leaving the hospital. Please make sure you see your Primary Care Provider as part of your follow up plan. Activity: As commented below Non-emergency contact: Primary Care Provider, Specialist and Traffic Rate Analyst Call non-emergency contact if: you have any medication questions, your symptoms worsen, your pain is not controlled, your pain is unusual for you and you have a fever Follow-up/Referrals: Nehemias Epstein MD [Physician] - (Cardiology will call Pt to schedule follow up) Bran Teague PA-C [Physician Casino Cashier] - 04/12/24 10:45 am (Hospital follow up scheduled with Bran Teague PA-C, on March 28 at 10:45 at the [place] office.) Oracio Gipson [Primary Care Provider] - (Dr. Gipson's office will call Pt to schedule follow up) Diet: Heart Healthy Addtl Attending Provider Instructions: You have been hospitalized for chest pain. EKG was without ST elevation or abnormality and troponins were minimally elevated. Your thyroid function was significantly elevated to 48 with LOW T4/T3 and I suspect was cause of your symptoms and we have RESTARTED SYNTHROID 125mcg daily and to take on empty stomach in the morning. Given hypothyroidism puts at risk for afib and you did not have any afib on monitor, we are arranging for event monitor at discharge and recommend baby aspirin 81mg daily in the meantime but may need adjusted to anticoagulation if any evidence for afib. Cardiology is going ot arrange for outpatient stress testing. We are getting referral to endocrinology at discharge for ongoing management and recommend repeat thyroid testing in the next month/adjustment as needed. Your cholesterol level was elevated and recommend discussing starting statin with primary care for prevention in the retirement. As discussed given prior intolerance to crestor. You could consider trying alternative agent like pravastatin and see if able to tolerate given only tried one of the statins and might be able to tolerate another better. Please follow up with primary care in the next 7-10 days to monitor your progress. Please return to the ER with any return of chest pain, palpitations, shortness of breath or for any other symptoms concerning for you. It has been a pleasure being a part of the medical team providing for you while you have been in the hospital. Take care! Pending Studies at Discharge: No Stand-Alone Forms: My [facility] MethylGene, Smoking Cessation Medications and DC Order Prescriptions: New aspirin 81 mg capsule 81 mg PO DAILY Qty: 30 0RF levothyroxine [Synthroid] 125 mcg tablet 125 mcg PO DAILY Qty: 30 0RF Continued coenzyme Q10 [Co Q-10] 200 mg Capsule 200 mg PO HS Calcium 600 + D(3) 600 mg calcium- 200 unit Capsule 1 tab PO HS cyanocobalamin (vitamin B-12) [Vitamin B-12] 1,000 mcg Tablet 1,000 mcg PO DAILY diltiazem HCl 30 mg Tablet 30 mg PO QAM red yeast rice 600 mg Capsule 600 mg PO DAILY Rx Instructions: give with meal/snack magnesium oxide 200 mg magnesium Tablet 200 mg PO DAILY Discontinued levothyroxine [Synthroid] 100 mcg tablet 100 mcg PO 3XWK levothyroxine [Synthroid] 112 mcg tablet 112 mcg PO 4XWK Discharge Orders: Discharge Order (Routine); Ordered 04/08/24 Ordered By: Claudia Teague Admission Data Admit Date/Time: 04/07/24 07:44 Attending Provider: Sarahi Serrano Admit Provider: Kevon Montelongo Primary Care Provider: Oracio Gipson Other Providers: Kevon Montelongo Other Interventions: Discharge Summary Assessment (RN) Last Done: 04/08/24 10:54 Hospital Stay Data Consultations 04/07/24 07:24 ED Decision to Admit Stat 04/07/24 07:42 Consult Cardiology Routine Diagnostic Imagining Performed Chest X-Ray 04/07/24 03:34 EXAM: XR chest 1V portable CLINICAL HISTORY: Chest pain. TECHNIQUE: An X-ray image of the chest is obtained in AP projection. COMPARISON: 11/25/2023 FINDINGS: Pulmonary Parenchyma: Lungs are clear bilaterally. No evidence of consolidation, collapse, or focal opacities. No pulmonary nodules are identified. No evidence of pleural effusion or pleural thickening. Heart and Mediastinum: Heart size and shape are normal. No mediastinal widening or masses. No hilar or mediastinal lymphadenopathy. Bony Thorax: Bony thorax appears intact without fractures or deformities. Soft Tissues: Soft tissues overlying the chest wall are unremarkable. IMPRESSION: Normal chest X-ray. No acute cardiopulmonary abnormalities are identified. Unchanged study. Electronically signed by Adonis Lowery 04-07-2024 05:31 AM ECHOCARDIOGRAM LV systolic function is normal. No regional wall motion abnormalities There is borderline concentric left ventricular hypertrophy Left ventricular ejection fraction 60-65% No significant valvular pathology Compared to study of 12/09/2023, no significant change Discharge Instructions Given to Patient (Per Discharging Provider) You have been hospitalized for chest pain. EKG was without ST elevation or abn ormality and troponins were minimally elevated. Your thyroid function was significantly elevated to 48 with LOW T4/T3 and I suspect was cause of your symptoms and we have RESTARTED SYNTHROID 125mcg daily and to take on empty stomach in the morning. Given hypothyroidism puts at risk for afib and you did not have any afib on monitor, we are arranging for event monitor at discharge and recommend baby aspirin 81mg daily in the meantime but may need adjusted to anticoagulation if any evidence for afib. Cardiology is going ot arrange for outpatient stress testing. We are getting referral to endocrinology at discharge for ongoing management and recommend repeat thyroid testing in the next month/adjustment as needed. 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 As discussed given prior intolerance to crestor. You could consider trying alternative agent like pravastatin and see if able to tolerate given only tried one of the statins and might be able to tolerate another better. Please follow up with primary care in the next 7-10 days to monitor your progress. Please return to the ER with any return of chest pain, palpitations, shortness of breath or for any other symptoms concerning for you. It has been a pleasure being a part of the medical team providing for you while you have been in the hospital. Take care! Total Time Total Time Spent Total Time Spent (In Minutes): 50 Coding Level of Care Code 46944 INP/OBS DISCH >30 MIN Diagnoses Chest pain R07.9 Hypothyroidism E03.9 Hyperlipidemia E78.5 Graves disease E05.00 Sleep apnea G47.30
[2024-04-08 10:55] VITALS: PULSE 56
--- NOTE | 2024-04-08 12:50 | XCELERA ---
[id number] \\[email or web address]\[id number]
== END 2024-04-08 11:47 | disposition home or self-care (01) ==
LOC: ED 03:12 → 2S 03:12 → SUATTDRO 07:44 → 2S 14:27